=== PATIENT | male | born 1955 | race Caucasian/White ===

== ENCOUNTER → 2016-08-09 | Day surgery (SDC) | payer OTHER ==
[2016-08-08 13:28] VITALS: BMI 21.0
[~2016-08-09] VITALS: Ht 177.8 cm; Wt 66.8 kg
[~2016-08-09] MED LIST: ACET-1256 PO; ALBUAER19 INH; BUPR1SUB23 SL; FERR1TAB13 PO; LIDOCAINE HCL 2% 2 ML VIAL (20MG/ML) ONE; MESA10002 PR; MIDAZOLAM HCL 1 MG/ML 2ML VIAL ONE; MULT-506 PO; OXGN; PROPOFOL IV EMULSION 10 MG/ML 20 ML VIAL IV ONE; SERT50TA PO
[2016-08-09 13:33] VITALS: Ht 177.8 cm; Wt 66.8 kg
--- NOTE | 2016-08-09 13:56 | Endo History and Physical ---
History & Physical Date of Service: Aug 09, 2016. Chief Complaint: ULCERATIVE COLITIS Referring Physician: DR. MARS SALINAS History of Present Illness ulcerative colitis Past Medical History COPD Past Surgical History Hx Cardiac Surgery: No Hx Internal Defibrillator: No Hx Pacemaker: No Hx Abdominal Surgery: No Hx of Implantable Prosthesis: No Hx Post-Op Nausea and Vomiting: No Hx Cancer Surgery: No Hx Thoracic Surgery: No Hx Orthopedic: Yes (LT CTR, LT TKA, LUMBAR DISC X2, RT TKA) Hx Urinary Tract Surgery: No Family History None Social History Smoking Status: Former Smoker Hx Substance Use: Yes (QUIT 2006) Hx Alcohol Use: Yes (QUIT 1990) Allergies Coded Allergies: No Known Allergies (Verified , 08/08/16) Current Medications Reported Home Medications Medications Dose Route/Sig Max Daily Dose Days Date Category Suboxone 8-2 Mg (Buprenorphine Hcl-Naloxone Hcl) 1 Sub Sub 1 Dose SL BID 08/08/16 Reported Kp Ferrous Sulfate (Ferrous Sulfate) 325 Mg Tab 1 Tab PO QAM 08/08/16 Reported Tylenol (Acetaminophen) 500 Mg Tab 1,000 Mg PO QAM PRN 08/08/16 Reported Canasa (Mesalamine) 1,000 Mg Sup 1 Supp IN HS 02/18/16 Reported Multivitamin (Multivitamins) Tab 1 Tab PO QAM 02/18/16 Reported Ventolin Inhaler (Albuterol) Aers 2 Puffs INH QID PRN 02/18/16 Reported Oxygen Gas 2 Liters NA HS 02/18/16 Reported Zoloft (Sertraline HCl) 50 Mg Tab 50 Mg PO QAM 07/12/15 Reported Vital Signs Weight (Kilograms): 66.82 Height (Feet): 5 Height (Inches): 10 Date Time Temp Pulse Resp B/P Pulse Ox O2 Delivery O2 Flow Rate FiO2 08/09/16 13:46 36.6 82 16 129/65 99 Room Air Physical Exam General Appearance: no apparent distress Respiratory/Chest: Auscultation: breath sounds normal Cardiovascular: Heart Auscultation: RRR Abdomen: Inspection & Palpation: soft Assessment and Plan Ulcerative colitis - cscopy
--- NOTE | 2016-08-09 14:31 | Discharge Instructions ---
Endoscopy Patient Instructions Date / Procedure(s) Performed Aug 09, 2016. Colonoscopy Allergy Information Coded Allergies: No Known Allergies (Verified , 08/08/16) Discharge Date / Findings Aug 09, 2016. Severe proximal colitis Provider Instructions Activity Restrictions - No exercising or heavy lifting for 24 hours. - Do not drink alcohol the day of the procedure. - Do not drive a car or operate machinery until the day after the procedure. - Do not make any important decisions or sign important papers in 24 hours after the procedure. Following Day: - Return to full activity which may include returning to work/school. Diet Start your diet with liquids and light foods (jello, soup, juice, toast). Then eat your usual diet if not nauseated. Treatment For Common After Affects For mild abdominal pain, bloating, or excessive gas: - Rest - Eat lightly - Lie on right side Follow-Up Information Follow-up with DR. MARS SALINAS as scheduled Anesthesia Information What You Should Know You have had a procedure that required some medicine to reduce anxiety and discomfort. This treatment is called moderate sedation. After receiving the treatment, you may be sleepy, but you will be able to breathe on your own. The effects of the treatment may last for several hours. Follow these instructions along with Activity/Diet recommendations noted above: * Do NOT do anything where dizziness or clumsiness would be dangerous. * Rest quietly at home today, then you can be up and about tomorrow. * Have a responsible person stay with you the rest of today. * You may have had an I.V. today. If so, you may take the dressing off later today. Recommendations Call your doctor if: * Trouble breathing * Continuous vomiting for more than 24 hours * Temperature above 101 degrees * Severe abdominal pain or bloating * Pain not relieved by pain medicine ordered * There is increased drainage or redness from any incision * A large amount of rectal bleeding greater than 2-3 tablespoons. (If you had a polyp/s removed or have hemorrhoids, a small amount of blood - from the rectum is to be expected.) * You have any unanswered questions or concerns. IN THE EVENT OF A SERIOUS EMERGENCY, GO TO THE NEAREST EMERGENCY ROOM Your discharge instructions were prepared by provider Mimi Ryan. Patient Instructions Signature Page Jesse Manuel Patient (or Guardian) Signature/Date: I have read and understand the instructions given to me by my caregivers. Caregiver/RN/Doctor Signature/Date: The above-named patient and/or guardian has received patient instructions on this date. + Original Patient Signature Page (only) stays with chart. Please make copy for patient.
[2016-08-09 14:53] VITALS: BP 117/58; PULSE 78; O2SAT 97
--- NOTE | 2016-08-09 15:12 | Anesthesiology Progress Note ---
Anesthesia Post Op Note Date & Time Aug 09, 2016 at 15:12 Vital Signs Pain Intensity: 0 Vital Signs Past 12 Hours Date Time Temp Pulse Resp B/P Pulse Ox O2 Delivery O2 Flow Rate FiO2 08/09/16 14:53 78 16 117/58 97 Room Air 08/09/16 14:38 89 16 109/58 98 Room Air 08/09/16 14:23 88 16 118/60 97 Room Air 08/09/16 13:46 36.6 82 16 129/65 99 Room Air Notes Mental Status: alert / awake / arousable, participated in evaluation Pt Amnestic to Procedure: Yes Nausea / Vomiting: adequately controlled Pain: adequately controlled Airway Patency, RR, SpO2: stable & adequate BP & HR: stable & adequate Hydration State: stable & adequate Anesthetic Complications: no major complications apparent
--- NOTE | 2016-08-10 00:44 | GI REPORT ---
Procedure Date: 08/09/2016 2:00 PM Procedure: Colonoscopy Indications: Follow-up of ulcerative colitis Medicines: See the Anesthesia note for documentation of the administered medications Complications: No immediate complications. Estimated Blood Loss: Estimated blood loss: none. Procedure: Pre-Anesthesia Assessment: - ASA Grade Assessment: III - A patient with severe systemic disease. After I obtained informed consent, the scope was passed under direct vision. Throughout the procedure, the patient's blood pressure, pulse, and oxygen saturations were monitored continuously. The scope was introduced through the anus and advanced to the terminal ileum. The colonoscopy was performed without difficulty. The patient tolerated the procedure well. The quality of the bowel preparation was good. Findings: The perianal and digital rectal examinations were normal. There was mild patchy erytema in the rectum. Proximal to the rectosigmoid colon, there was evidence of severe colitis extending from the hepatic flexure to the rectosigmoid junction. There was marked granularity, edema, erythema of the entire transverse, descending, and sigmoid colon. There were patchy areas of rake ulceration, and the mucosa was diffusely covered with exudate. There was sparing of the ascending colon; the ascending colon was largely normal. The ileum was normal. Random biopsies done from throughou the colon. Impression: Rectal sparing severe colitis. Sparing of rectum is likely related to canasa use. Recommendation: Discharge pt home. Plan for prednisone taper. Oral mesalamine. Mimi Krause M.D. Mimi Krause MD 08/09/2016 2:24:51 PM This report has been signed electronically. Note Initiated On: 08/09/2016 2:00 PM I attest to the content of the Intraoperative Record and orders documented therein, exceptions below
[2016-08-11 18:03] LABS: O&P GIARDIA AG NOT DETECTED (NOT DETECTED)
== END | disposition home or self-care (01) ==
LOC: C.GI 13:19
PROVIDERS: ATTEND Internal Medicine Gastroenterology
DX: K51.90 Ulcerative colitis, unspecified, without complications (principal); Z87.891 Personal history of nicotine dependence; J44.9 Chronic obstructive pulmonary disease, unspecified

== ENCOUNTER → 2016-09-18 | Outpatient (CLI) | payer OTHER ==
[~2016-09-18] MED LIST changes: -LIDOCAINE HCL 2% 2 ML VIAL (20MG/ML) ONE; -MIDAZOLAM HCL 1 MG/ML 2ML VIAL ONE; -PROPOFOL IV EMULSION 10 MG/ML 20 ML VIAL IV ONE
--- NOTE | 2016-09-18 12:19 | DIAGNOSTIC IMAGING REPORT ---
CT SCAN OF THE CHEST WITHOUT IV CONTRAST CLINICAL HISTORY: Pulmonary nodule follow-up. COMPARISON STUDY: Chest CT scans dated 01/27/2016 and 09/06/2015. Abdominal CT dated 08/15/2007. TECHNIQUE: CT scan of the thorax was performed from the thoracic inlet to the upper abdomen. Images are reviewed in the axial, sagittal, and coronal planes. IV contrast was not administered for this examination. CT DOSE: 350.66 mGycm FINDINGS: Thyroid: Imaged portions of the thyroid gland are normal in size and attenuation. Thoracic aorta: There is mild atherosclerotic calcification of the thoracic aorta, which is normal in caliber and demonstrates standard 3-vessel arch anatomy. Heart: The heart is normal in size and without pericardial effusion. The coronary arteries and aortic valve leaflets are densely calcified. Lungs and pleural spaces: There is advanced emphysema. There is no airspace consolidation or pleural effusion. The trachea and central airways are clear. A tiny calcified granuloma is seen in the right lower lobe. There are left lower lobe nodules seen on image #251 and #272. These measure up to 6 mm and are unchanged dating back to the [address] These nodules are of doubtful significance. A left upper lobe nodule on image #92 measures 4 mm, and right upper lobe nodules seen on images #65, #91, and #149 measure up to 5 mm. These have been present dating back to 09/06/2015. No new pulmonary nodules are identified. Mediastinum: There is no mediastinal lymphadenopathy. Ledy: Not well assessed without IV contrast. Axillae: There is no axillary lymphadenopathy. Upper abdomen: Bilateral nonobstructing renal calculi measuring up to 4 mm. Partially imaged upper abdominal viscera is otherwise grossly normal. Skeletal structures: The skeletal structures appear osteopenic. Mild degenerative changes noted throughout the thoracic spine. There are mild compression deformities of T12 and L1. No lytic or blastic bony lesions are seen. Calcific tendinopathy is noted in the left shoulder. IMPRESSION: 1. Advanced emphysema. 2. No airspace consolidation or pleural effusion is seen. 3. There are 2 left lower lobe pulmonary nodules measure up to 6 mm. These are unchanged dating back to a [address] and are of doubtful significance. 4. Upper lobe nodules measure up to 5 mm and have not significantly changed dating back to 09/06/2015. These are pathologically indeterminant but of low significance. Continued follow-up is recommended to document 2 years of stability. 5. No new pulmonary nodules are identified. 6. Bilateral nonobstructing renal calculi. Please refer to below summary of Fleischner criteria recommendations for follow-up of incidental CT nodules (Gely Hernandez, Guidelines for management of small pulmonary nodules detected on CT scans: A statement from the Fleischner Society, Radiology 237: [phone].) SOLID NODULES Solitary nodule size: <6 mm * low risk patients: no follow-up needed * high risk patients: optional CT at 12 months Solitary nodule size: 6-8 mm * low risk patients: follow-up at 6-12 months, then consider further follow-up at 18-24 months * high risk patients: initial follow-up CT at 6-12 months and then at 18-24 months if no change Solitary nodule size: >8 mm * either low or high risk patients - consider follow-up CT at 3 months, and/or CT-PET, and/or biopsy Multiple nodules size: <6 mm * low risk patients: no routine follow-up * high risk patients: optional CT at 12 months Multiple nodules size: 6-8 mm * low risk patients: follow-up at 3-6 months, then consider further follow-up at 18-24 months * high risk patients: follow-up at 3-6 months, then at 18-24 months if no change Multiple nodules size: >8 mm * low risk patients: follow-up at 3-6 months, then consider further follow-up at 18-24 months * high risk patients: follow-up at 3-6 months, then at 18-24 months if no change Note: newly detected indeterminate nodule in persons 35 years of age or older. * low risk patients: minimal or absent history of smoking and/or other known risk factors * high risk patients: history of smoking or of other known risk factors (e.g. first degree relative with lung cancer, or exposure to asbestos, radon, uranium) * if a nodule up to 8 mm is partly solid or is ground glass further follow-up is required after 24 months to exclude possible slow growing adenocarcinoma (AMOS) SUBSOLID NODULES Solitary pure ground-glass nodule * nodule size <6 mm - no CT follow-up required * nodule size >=6 mm - follow-up CT at 6-12 months, then every 2 years until 5 years Solitary part-solid nodule * nodule size <6 mm - no CT follow-up required * nodule size >=6 mm - follow-up CT at 3-6 months. If unchanged, and solid component remains <6 mm, then annual follow-up for 5 years Multiple subsolid nodules * nodule size <6 mm - follow-up CT at 3-6 months, consider further follow-up at 2 and 4 years if stable * nodule size >=6 mm - follow-up CT at 3-6 months, subsequent management based on the most suspicious nodule(s) Electronically signed by: Angel Dye M.D. 09/18/2016 12:17 PM Dictated Date/Time: 09/18/2016 12:08 PM
== END | disposition home or self-care (01) ==
LOC: C.CTS 11:25
PROVIDERS: ATTEND Internal Medicine Critical Care Medicine
DX: R91.8 Other nonspecific abnormal finding of lung field (principal); J43.9 Emphysema, unspecified; N20.0 Calculus of kidney

== ENCOUNTER → 2016-10-10 | Outpatient (CLI) | payer OTHER ==
--- NOTE | 2016-10-10 17:11 | DIAGNOSTIC IMAGING REPORT ---
ULTRASOUND VENOUS DOPPLER ULTRASOUND THE LEFT LOWER EXTREMITY CLINICAL HISTORY: Left leg swelling. COMPARISON STUDY: 09/06/2015 FINDINGS: Real-time and color flow Doppler imaging were performed. Flow was seen within the femoral, popliteal and calf veins with no intraluminal thrombus demonstrated. The saphenous vein is patent. IMPRESSION: No evidence of left lower extremity DVT Electronically signed by: Deven Lane M.D. 10/10/2016 5:09 PM Dictated Date/Time: 10/10/2016 5:08 PM
== END | disposition home or self-care (01) ==
LOC: C.ULTR 16:42
PROVIDERS: ATTEND Orthopaedic Surgery Sports Medicine
DX: M79.89 Other specified soft tissue disorders (principal)

== ENCOUNTER → 2017-02-27 | Outpatient (CLI) | payer OTHER ==
[2017-02-27 16:39] LABS: BASO % 0.4 %; BASO ABS # 0.02 K/uL (0-0.2); COMPLETE YES; EOS % 3.3 %; HEMATOCRIT 34.5 % (42-52); IG% 0.2 %; LYMPH % 32.9 %; LYMPH ABS # 1.81 K/uL (1.2-3.4); MEAN CELL VOLUME 95.3 fL (80-100); MEAN CORPUSCULAR HEMOGLOBIN 31.5 pg (25-34); MEAN PLATELET VOLUME 9.6 fL (7.4-10.4); MONO % 8.9 %; NEUT % 54.3 %; PLATELET COUNT 381 K/uL (130-400); RED BLOOD COUNT 3.62 M/uL (4.7-6.1)
[2017-02-27 17:40] LABS: ALT/SGPT 33 U/L (12-78); AST/SGOT 22 U/L (15-37); BLOOD UREA NITROGEN 13 mg/dl (7-18); BUN/CREATININE RATIO 17.3 (10-20); CALCIUM 9.1 mg/dl (8.5-10.1); CARBON DIOXIDE 23 mmol/L (21-32); CHLORIDE 109 mmol/L (98-107); CREATININE 0.78 mg/dl (0.60-1.40); GLUCOSE 72 mg/dl (70-99); POTASSIUM 3.9 mmol/L (3.5-5.1); SODIUM 140 mmol/L (136-145)
[2017-02-27 17:42] LABS: ALKALINE PHOSPHATASE 69 U/L (45-117)
[2017-03-03 12:21] LABS: HEPATITIS C VIRAL RNA BY PCR <15 NOT DETECTED IU/ML (<15); HEPATITIS C VIRAL RNA(LOG) PCR <1.18 NOT DETECTED LOG IU/ML (<1.18)
== END | disposition home or self-care (01) ==
LOC: C.LAB 15:25
PROVIDERS: ATTEND Internal Medicine Gastroenterology
DX: B18.2 Chronic viral hepatitis C (principal)

== ENCOUNTER → 2017-04-23 | Outpatient (CLI) | payer OTHER ==
[2017-04-23 16:50] LABS: BASO % 0.6 %; BASO ABS # 0.04 K/uL (0-0.2); COMPLETE YES; EOS % 3.3 %; HEMATOCRIT 33.9 % (42-52); IG% 0.2 %; LYMPH % 36.8 %; LYMPH ABS # 2.43 K/uL (1.2-3.4); MEAN CELL VOLUME 95.8 fL (80-100); MEAN CORPUSCULAR HEMOGLOBIN 31.6 pg (25-34); MEAN PLATELET VOLUME 9.6 fL (7.4-10.4); NEUT % 52.1 %; PLATELET COUNT 324 K/uL (130-400); RED BLOOD COUNT 3.54 M/uL (4.7-6.1)
[2017-04-23 17:44] LABS: ALT/SGPT 36 U/L (12-78); BLOOD UREA NITROGEN 14 mg/dl (7-18); BUN/CREATININE RATIO 15.7 (10-20); CALCIUM 9.2 mg/dl (8.5-10.1); CARBON DIOXIDE 25 mmol/L (21-32); CHLORIDE 103 mmol/L (98-107); CREATININE 0.88 mg/dl (0.60-1.40); GLUCOSE 103 mg/dl (70-99); POTASSIUM 3.4 mmol/L (3.5-5.1); SODIUM 138 mmol/L (136-145)
[2017-04-23 17:47] LABS: ALKALINE PHOSPHATASE 70 U/L (45-117); AST/SGOT 28 U/L (15-37)
[2017-04-27 08:55] LABS: HEPATITIS C VIRAL RNA BY PCR <15 NOT DETECTED IU/ML (<15); HEPATITIS C VIRAL RNA(LOG) PCR <1.18 NOT DETECTED LOG IU/ML (<1.18)
== END | disposition home or self-care (01) ==
LOC: C.LAB 15:34
PROVIDERS: ATTEND Internal Medicine Gastroenterology
DX: B18.2 Chronic viral hepatitis C (principal)

== ENCOUNTER → 2017-07-26 | Outpatient (CLI) | payer OTHER ==
[2017-07-26 16:43] LABS: BASO % 0.5 %; BASO ABS # 0.03 K/uL (0-0.2); EOS % 4.1 %; EOS ABS # 0.25 K/uL (0-0.5); HEMATOCRIT 33.7 % (42-52); HEMOGLOBIN 11.3 g/dL (14.0-18.0); IG# 0.01 K/uL (0.00-0.02); LYMPH % 30.8 %; LYMPH ABS # 1.88 K/uL (1.2-3.4); MEAN CELL VOLUME 95.2 fL (80-100); MEAN CORPUSCULAR HEMOGLOBIN 31.9 pg (25-34); MEAN CORPUSCULAR HGB CONC 33.5 g/dl (32-36); MEAN PLATELET VOLUME 9.4 fL (7.4-10.4); MONO % 7.5 %; MONO ABS # 0.46 K/uL (0.11-0.59); NEUT % 56.9 %; NEUT ABS # 3.48 K/uL (1.4-6.5); PLATELET COUNT 324 K/uL (130-400); RED CELL DISTRIBUTION WIDTH CV 12.7 % (11.5-14.5); WHITE BLOOD COUNT 6.11 K/uL (4.8-10.8)
[2017-07-26 17:07] LABS: ALBUMIN 3.9 gm/dl (3.4-5.0); ALT/SGPT 39 U/L (12-78); AST/SGOT 29 U/L (15-37); BLOOD UREA NITROGEN 16 mg/dl (7-18); CALCIUM 8.9 mg/dl (8.5-10.1); CARBON DIOXIDE 26 mmol/L (21-32); CREATININE 0.88 mg/dl (0.60-1.40); GLUCOSE 83 mg/dl (70-99); POTASSIUM 3.9 mmol/L (3.5-5.1); SODIUM 136 mmol/L (136-145)
[2017-07-26 17:09] LABS: ALKALINE PHOSPHATASE 68 U/L (45-117); TOTAL PROTEIN 8.3 gm/dl (6.4-8.2)
[2017-07-31 08:47] LABS: HEPATITIS C VIRAL RNA BY PCR <15 NOT DETECTED IU/ML (<15); HEPATITIS C VIRAL RNA(LOG) PCR <1.18 NOT DETECTED LOG IU/ML (<1.18)
== END | disposition home or self-care (01) ==
LOC: C.LAB 15:17
PROVIDERS: ATTEND Internal Medicine Gastroenterology
DX: B18.2 Chronic viral hepatitis C (principal)

== ENCOUNTER 2025-02-07 14:03 | Inpatient (IN) ==
--- NOTE | 2025-02-07 14:18 | Emergency Department Note ---
Impression & Plan Acute dyspnea, Acute hypokalemia, Hypomagnesemia, Leukocytosis, Elevated lactic acid level, Elevated procalcitonin, Severe sepsis ED Provider Note HISTORY OF PRESENT ILLNESS: Patient is a 69-year-old male presenting with shortness of breath. Patient reports that shortly after waking up this morning he became significantly short of breath and felt like he could not catch his breath. He wears supplemental oxygen at night only. He started to develop some left-sided and substernal chest pain, and decided to call 911. On EMS arrival, the patient reportedly had saturations in the upper 80s on room air. They gave him a DuoNeb treatment and placed him on 4 L nasal cannula with improvement in his saturations to the upper 90s. Patient denies any DVT or PE history. Denies any history of cardiac stents. Denies any significant cough. He describes the left-sided and substernal chest pain as a pressure-like sensation. Denies recent fevers or chills. Denies any abdominal pain, nausea or vomiting. He denies any recent sick contact exposures. ROS: as above PHYSICAL EXAM: Constitutional: Patient appears in no acute distress. HENT: Head: Normocephalic and atraumatic. Eyes: EOMI, PERRL Mouth/Throat: Mucous membranes moist. Neck: Trachea midline. Neck supple. Cardiovascular: Tachycardic with regular rhythm. No murmurs, rubs or gallops. Intact distal pulses. Pulmonary/Chest: No respiratory distress. Breath sounds clear and equal bilaterally. No wheezes or rales. Abdominal: Abdomen soft, no tenderness, rebound or guarding. Musculoskeletal: No edema, tenderness or deformity noted. Skin: Warm and dry. Patient noted to have scabbed over wound on the left lateral upper leg. No obvious drainage from this area. No palpable crepitus. Psychiatric: Appropriate mood and affect for situation. Neurological: Alert and keenly responsive. CN II-XII grossly intact, moving all extremities equally and fully. MDM: - Vitals signs showed fever and tachycardia. - History obtained via patient. History as above. - Chronic conditions affecting care: COPD; anemia - Differential diagnoses include, but are not limited to: Congestive heart failure; acute coronary syndrome; COPD/asthma exacerbation; pulmonary edema; pulmonary embolism; pneumonia; pneumothorax; viral syndrome - Order placed for continuous cardiac monitoring. At this time, monitor showed rate of 125 bpm with normal sinus rhythm, per my interpretation. - External medical records reviewed. Pulmonary visit note dated 02/2025 was reviewed. Patient follows in our clinic for COPD. He wears 2 L nasal cannula at nighttime while sleeping. - EKG image interpreted by myself showed normal sinus rhythm. Rate tachycardic at 128 bpm. QT 306. No acute ischemic changes. - Laboratory workup interpreted by myself showed leukocytosis (WBC 19.82) with neutrophil predominance; anemia (Hgb 10.1); hyponatremia (Na 134); hypokalemia (K 2.8); elevated lactate (3.4); hypomagnesemia (Mg 1.5); normal troponin; normal BNP; elevated procalcitonin (6.11) - CXR image reviewed and interpreted by myself is negative for pneumonia, per my interpretation. - UA negative for infection - Blood cultures obtained - VBG negative - Patient given 2.5L NS in ER. Patient's sepsis fluid volume calculation based on actual body weight is 2259.00 mL. - Empirically covered for sepsis with vancomycin and cefepime - Patient given a total of 40 mEq IV potassium in 10 mEq IV runs. Given 1g IV magnesium for electrolyte replacement. - Given 1g IV tylenol for fever in ER. - Given patient's fever, tachycardia, tachypnea and leukocytosis as well as his elevated lactic acid level, he meets severe sepsis criteria. - Discussion was had with block and case maker about patient's case and need for admission - Hospitalist, Dr. Toney, consulted for admission at 16:07 - [facility]. I have personally spent 63 minutes of critical care time in the direct management of this patient. This includes bedside care, interpretation of diagnostic studies, and testing, discussion with consultants, patient, and family members, and other required patient management activities. This 63 minutes is in excess of all separately billable procedures. ASSESSMENT AND PLAN: Diagnosis: severe sepsis; acute dyspnea; acute hypokalemia; hypomagnesemia; leukocytosis; elevated lactic acid level; elevated procalcitonin Plan: Admit Past Med/Surg History Problem List (Updated 02/07/25 @ 15:12 by Daksha Irving MD) Severe sepsis (Acute) Elevated procalcitonin (Acute) Elevated lactic acid level (Acute) Leukocytosis (Acute) Hypomagnesemia (Acute) Acute hypokalemia (Acute) Acute dyspnea (Acute) Chronic venous insufficiency Venous ulcer of right leg (Acute) History of tobacco abuse Aortic stenosis Cardiac murmur Engages in vaping Nocturnal hypoxemia due to obstructive chronic bronchitis Chronic obstructive pulmonary disease Knee joint replacement status (Chronic) Left knee DJD Hepatitis C carrier (Chronic) 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) Medical History (Updated 02/07/25 @ 15:12 by Daksha Irving MD) IBD (inflammatory bowel disease) Anemia COPD (chronic obstructive pulmonary disease) Surgical History History of heart valve replacement H/O knee surgery History of back surgery Social History (Updated 12/10/23 @ 16:04 by Renetta Landaverde LPN) Smoking Status: Current every day smoker Tobacco Type: E-cigarettes / Vaping Age Started Using Tobacco: 11; packs per day: 2; Cigarettes Per Day: 2 packs; Second Hand Exposure: No; Do You Dip or Chew Tobacco: No; Hx Alcohol Use: No Hx Substance Use: No Preferred Language: Ugandan Current Living Situation: Spouse current occupation: Retired Feels Safe at Home: Yes Allergies Allergies Allergy/AdvReac Type Severity Reaction Status Date / Time No Known Allergies Allergy Unknown Verified 02/07/25 15:26 Home Meds Home Medications Medication Instructions Recorded Confirmed buprenorphine 8 mg-naloxone 2 mg 1.5 ea sublingual DAILY 04/02/19 02/07/25 sublingual film (Suboxone) mesalamine 1.2 gram tablet,delayed 2.4 gm PO DAILY 04/02/19 02/07/25 release acetaminophen 500 mg tablet 1,000 mg PO .DAILY WITH LUNCH PRN 08/03/21 02/07/25 (Tylenol Extra Strength) Pain ferrous sulfate 325 mg (65 mg 325 mg PO 3XWK 08/03/21 02/07/25 iron) tablet gabapentin 300 mg capsule 300 mg PO BIDWMEAL 08/03/21 02/07/25 sertraline 100 mg tablet 200 mg PO DAILY 08/03/21 02/07/25 aspirin 81 mg tablet,delayed 81 mg PO DAILY 12/10/23 02/07/25 release chlorthalidone 25 mg tablet 25 mg PO Q OTHER DAY 04/24/24 02/07/25 cholecalciferol (vitamin D3) 125 125 mcg PO DAILY 02/07/25 02/07/25 mcg (5,000 unit) tablet (Vitamin D3) coenzyme Q10 100 mg capsule (Co 100 mg PO DAILY 02/07/25 02/07/25 Q-10) gabapentin 300 mg capsule 900 mg PO HS 02/07/25 02/07/25 mesalamine 1,000 mg rectal 1,000 mg NH Q OTHER DAY 02/07/25 02/07/25 suppository omeprazole 20 mg capsule,delayed 20 mg PO DAILY 02/07/25 02/07/25 release prednisone 10 mg tablet 70 mg PO DAILY 02/07/25 02/07/25 rosuvastatin 20 mg tablet 20 mg PO QPM 02/07/25 02/07/25 Previous Rx's Medication Instructions Recorded Oxygen Home #1 ea 12/14/21 albuterol sulfate 90 mcg/actuation 2 inh inhalation QID PRN shortness 12/07/22 aerosol inhaler of breath or wheezing #8.5 grams Results & Data (ED) Vital Signs Vital Signs - 24 hr 02/07/25 14:04 02/07/25 14:33 02/07/25 14:42 Temperature 38.8 C H Temperature Source Oral Pulse Rate 127 H 132 H 135 H Pulse Rate [Right Finger] Pulse Rate from SpO2 Sensor 131 H Respiratory Rate 22 23 Respiratory Effort / Characteristics Respiratory Depth Respiratory Pattern Blood Pressure 126/76 117/75 Blood Pressure [Right Arm] Blood Pressure Mean 92 89 Blood Pressure Mean [Right Arm] Blood Pressure Position Semi-fowlers Pulse Oximetry 91 91 Oxygen Delivery Method Room Air Oxygen Flow Rate Sepsis Recent Fever Within 48 Hours Yes Sepsis New/Unexplained Change in Mental Status Yes Sepsis Action Taken by Nursing Physician Notified Oxygen Flow Rate - Titration Pulse Oximetry Post Tiitration 02/07/25 14:56 02/07/25 15:34 02/07/25 15:38 Temperature Temperature Source Pulse Rate Pulse Rate [Right Finger] 116 H Pulse Rate from SpO2 Sensor Respiratory Rate 24 Respiratory Effort / Characteristics Non-Labored Spontaneous Respiratory Depth Normal Respiratory Pattern Regular Blood Pressure Blood Pressure [Right Arm] 110/66 Blood Pressure Mean Blood Pressure Mean [Right Arm] 80 Blood Pressure Position Pulse Oximetry 87 L Oxygen Delivery Method Room Air Room Air Nasal Cannula Oxygen Flow Rate 87 Sepsis Recent Fever Within 48 Hours Sepsis New/Unexplained Change in Mental Status Sepsis Action Taken by Nursing Oxygen Flow Rate - Titration 2 Pulse Oximetry Post Tiitration 92 02/07/25 15:57 Temperature Temperature Source Pulse Rate Pulse Rate [Right Finger] 116 H Pulse Rate from SpO2 Sensor Respiratory Rate 22 Respiratory Effort / Characteristics Non-Labored Spontaneous Respiratory Depth Normal Respiratory Pattern Blood Pressure Blood Pressure [Right Arm] 99/57 L Blood Pressure Mean Blood Pressure Mean [Right Arm] 71 Blood Pressure Position Pulse Oximetry 90 Oxygen Delivery Method Nasal Cannula Oxygen Flow Rate 2 Sepsis Recent Fever Within 48 Hours Sepsis New/Unexplained Change in Mental Status Sepsis Action Taken by Nursing Oxygen Flow Rate - Titration Pulse Oximetry Post Tiitration Laboratory Data 02/07/25 14:18 02/07/25 14:18 Lab Results 02/07/25 02/07/25 Range/Units 14:18 14:31 WBC 19.82 H (4.8-10.8) K/ul RBC 3.36 L (4.70-6.10) M/uL Hgb 10.1 L (14.0-18.0) g/dl Hct 31.5 L (42.0-52.0) % MCV 93.8 (80.0-100.0) fL MCH 30.1 (25.0-34.0) pg MCHC 32.1 (32.0-36.0) g/dL RDW Std Deviation 62.2 H (36.4-46.3) fL RDW Coeff of Ra 19.7 H (11.5-14.5) % Plt Count 324 (130-400) K/uL MPV 9.9 (9.4-12.4) fL Immature Gran % (Auto) 0.6 % Neut % (Auto) 90.0 % Lymph % (Auto) 6.4 % [place] % (Auto) 2.7 % Eos % (Auto) 0.2 % Baso % (Auto) 0.1 % Neut # (Auto) 17.85 H (1.40-6.50) K/uL Lymph # (Auto) 1.27 (1.20-3.40) K/uL [place] # (Auto) 0.54 (0.11-0.59) K/uL Eos # (Auto) 0.03 (0.00-0.50) K/uL Baso # (Auto) 0.01 (0.00-0.20) K/uL Immature Gran # (Auto) 0.12 (0.01-0.20) K/uL Absolute Nucleated RBC 0.03 (0.00-0.12) K/uL Nucleated RBC % (auto) 0.2 % PT 10.3 (9.0-12.0) Seconds INR 0.9 (0.9-1.1) VBG pH 7.52 H (7.36-7.41) VBG pCO2 35 L (38-50) mmHg VBG pO2 30 mmHg VBG HCO3 29 mmol/L VBG O2 Saturation < 60.0 % VBG Base Excess 5.7 mEq/L Sodium 134 L (136-145) mmol/L Potassium 2.8 L (3.5-5.1) mmol/L Chloride 98 (98-107) mmol/L Carbon Dioxide 28 (21-32) mmol/L Anion Gap 8 (3-11) BUN 21 (6-23) mg/dl Creatinine 1.07 (0.6-1.4) mg/dl Est Cr Clr Drug Dosing Not Reportable eGFR 74.19 BUN/Creatinine Ratio 19.6 (10-20) Glucose 113 H (70-99(Fasting)) mg/dl Lactate 3.4 H* (0.4-2.0) mmol/L Calcium 9.4 (8.6-10.3) mg/dl Magnesium 1.5 L (1.7-2.4) mg/dl Total Bilirubin 0.5 (0.2-1.0) mg/dl AST 29 (13-39) U/L ALT 22 (7-52) U/L Alkaline Phosphatase 51 (34-104) U/L Troponin I High Sens 19.2 (0-20) pg/ml B-Natriuretic Peptide 71 (0-100) pg/ml Total Protein 7.8 (6.0-8.3) gm/dl Albumin 4.0 (3.4-5.0) gm/dl Globulin 3.8 (2.5-4.0) gm/dl Albumin/Globulin Ratio 1.1 (0.9-2) Procalcitonin 6.11 H (0-0.5) ng/ml Urine Color Yellow Urine Appearance Clear (Clear) Urine pH 7.5 (4.5-7.5) Ur Specific [place] 1.014 (1.000-1.030) Urine Protein Negative (Negative) Urine Glucose (UA) Negative (Negative) Urine Ketones Negative (Negative) Urine Blood Negative (Negative) Urine Nitrite Negative (Negative) Urine Bilirubin Negative (Negative) Urine Urobilinogen Negative (Negative) Ur Leukocyte Esterase Negative (Negative) Urine Comment Ethyl Alcohol mg/dL < 10.0 (<10.0) mg/dl Administered Medications Potassium Chloride (K Javed / Wtr) 10 meq in 100 mls @ 100 mls/hr IV Q1H CRISTINA Stop: 02/07/25 19:14 Last Admin: 02/07/25 15:53 Dose: 100 mls/hr Documented By: NRB Discontinued Medications Sodium Chloride (Nss) 1,000 mls @ 999 mls/hr IV .Q1H1M ONE Stop: 02/07/25 15:34 Last Admin: 02/07/25 15:21 Dose: 999 mls/hr Documented By: NRB Sodium Chloride (Nss) 1,000 mls @ 999 mls/hr IV .Q1H1M ONE Stop: 02/07/25 16:00 Last Admin: 02/07/25 15:30 Dose: 999 mls/hr Documented By: NRB Sodium Chloride (Nss) 500 mls @ 999 mls/hr IV .Q31M ONE Stop: 02/07/25 15:30 Last Admin: 02/07/25 15:54 Dose: 999 mls/hr Documented By: NRB Cefepime HCl (Maxipime 2000mg) 2,000 mg in 20 mls @ 5 mls/min IV NOW STA; Protocol Stop: 02/07/25 15:03 Last Admin: 02/07/25 15:24 Dose: 5 mls/min Documented By: NRB Acetaminophen (Ofirmev) 1,000 mg in 100 mls @ 400 mls/hr IV NOW STA Stop: 02/07/25 15:15 Last Admin: 02/07/25 15:23 Dose: 400 mls/hr Documented By: NRB Imaging Data Radiologist's Impression: Chest X-Ray 02/07/25 14:09 Chest radiograph, one view History: Dyspnea Comparison: None Findings: Single AP view of the chest performed. No focal consolidation or pleural effusion. No pneumothorax. The cardiomediastinal silhouette is within normal limits. Normal pulmonary vascularity. No evidence for lymphadenopathy. No visualized bony or soft tissue abnormality. Impression: Normal chest radiograph Electronically signed by Mike Elias 02-07-2025 3:02 PM Discharge Plan Visit Data Chief Complaint: Shortness of Breath/Dyspnea ED Provider: Daksha Irving Discharge Problem: Acute dyspnea, Acute hypokalemia, Hypomagnesemia, Leukocytosis, Elevated lactic acid level, Elevated procalcitonin, Severe sepsis Patient Disposition: Admitted As Inpatient Condition: Fair Forms Stand Alone Forms: My [facility] Prescriptions Prescriptions: No Action (DME) Oxygen Home Liters Per Minute See Dose Instructions .ROUTE .MEDSUPPLY Qty: 1 0RF Rx Instructions: 2LPM AT NIGHT VIA AR BRADEN-99 albuterol sulfate 90 mcg/actuation HFA aerosol inhaler 2 inh inhalation QID PRN (Reason: shortness of breath or wheezing) Qty: 8.5 3RF aspirin 81 mg tablet,delayed release (DR/EC) 81 mg PO DAILY mesalamine 1.2 gram tablet,delayed release (DR/EC) 2.4 gm PO DAILY buprenorphine-naloxone [Suboxone] 8-2 mg film 1.5 ea SL DAILY chlorthalidone 25 mg tablet 25 mg PO Q OTHER DAY Rx Instructions: Sunday, Sunday, and Sunday sertraline 100 mg tablet 200 mg PO DAILY gabapentin 300 mg capsule 300 mg PO BIDWMEAL Rx Instructions: Breakfast and lunch ferrous sulfate 325 mg (65 mg iron) Tablet 325 mg PO 3XWK Rx Instructions: ,,sat; on hold pt has been receiving IV infusion for Iron acetaminophen [Tylenol Extra Strength] 500 mg Tablet 1,000 mg PO .DAILY WITH LUNCH PRN (Reason: Pain) prednisone 10 mg tablet 70 mg PO DAILY Rx Instructions: adjusted weekly by lab results gabapentin 300 mg capsule 900 mg PO HS omeprazole 20 mg capsule,delayed release(DR/EC) 20 mg PO DAILY coenzyme Q10 [Co Q-10] 100 mg Capsule 100 mg PO DAILY rosuvastatin 20 mg tablet 20 mg PO QPM mesalamine 1,000 mg suppository 1,000 mg NH Q OTHER DAY cholecalciferol (vitamin D3) [Vitamin D3] 125 mcg (5,000 unit) Tablet 125 mcg PO DAILY Referrals Referrals: Garcia Elias DO [Primary Care Provider] -
[2025-02-07 14:29] LABS: Base Excess VBG 5.7 mEq/L; HCO3 VBG 29 mmol/L; Oxygen Saturation VBG < 60.0 %; PCO2 VBG 35 mmHg (38-50); PO2 VBG 30 mmHg; pH VBG 7.52 (7.36-7.41)
[2025-02-07 14:34] LABS: Hematocrit (blood only) 31.5 % (42.0-52.0); Hemoglobin 10.1 g/dl (14.0-18.0); Immature Granulocytes # (auto) 0.12 K/uL (0.01-0.20); Immature Granulocytes % (auto) 0.6 %; Mean Corpuscular Hemoglobin 30.1 pg (25.0-34.0); Mean Corpuscular Volume 93.8 fL (80.0-100.0); Platelet Count 324 K/uL (130-400); RDW Standard Deviation 62.2 fL (36.4-46.3); Red Blood Count 3.36 M/uL (4.70-6.10); White Blood Count 19.82 K/ul (4.8-10.8)
[2025-02-07 14:51] LABS: Appearance Urine Clear (Clear); Glucose Urine UA Negative (Negative)
[2025-02-07 14:53] LABS: Alanine Aminotransferase 22 U/L (7-52); Albumin Globulin Ratio 1.1 (0.9-2); Alkaline Phosphatase 51 U/L (34-104); Anion Gap 8 (3-11); Bilirubin,Total 0.5 mg/dl (0.2-1.0); Blood Urea Nitrogen 21 mg/dl (6-23); Calcium 9.4 mg/dl (8.6-10.3); Carbon Dioxide 28 mmol/L (21-32); Chloride 98 mmol/L (98-107); Globulin 3.8 gm/dl (2.5-4.0); Glucose 113 mg/dl (70-99(Fasting)); Magnesium 1.5 mg/dl (1.7-2.4); Potassium 2.8 mmol/L (3.5-5.1); Sodium 134 mmol/L (136-145); Total Protein 7.8 gm/dl (6.0-8.3)
[2025-02-07] MEDS ORDERED: VANCOMYCIN CONSULT ACTIVE PRN (15:00)
--- NOTE | 2025-02-07 15:02 | XRay Report ---
Chest radiograph, one view History: Dyspnea Comparison: None Findings: Single AP view of the chest performed. No focal consolidation or pleural effusion. No pneumothorax. The cardiomediastinal silhouette is within normal limits. Normal pulmonary vascularity. No evidence for lymphadenopathy. No visualized bony or soft tissue abnormality. Impression: Normal chest radiograph Electronically signed by Mike Elias 02-07-2025 3:02 PM
[2025-02-07] MEDS: SODIUM CHLORIDE 0.9% 1,000 ML IV ONE ×2 (15:21→15:30)
[2025-02-07] MEDS: ACETAMINOPHEN 1,000 MG/100 ML VIAL IV STA (15:23)
[2025-02-07] MEDS: CEFEPIME 2000MG 2,000 MG/20 ML SYR IV STA (15:24)
[2025-02-07 15:41] LABS: INR 0.9 (0.9-1.1); Prothrombin Time 10.3 Seconds (9.0-12.0)
[2025-02-07] MEDS: POTASSIUM CHLORIDE / WTR 10 MEQ/100 ML PLCT IV SCH (15:53)
[2025-02-07] MEDS: SODIUM CHLORIDE 0.9% 500 ML IV ONE (15:54)
[2025-02-07] MEDS: MAGNESIUM SULFATE / D5W 1 GM/100 ML BAG IV STA (16:06)
[2025-02-07 16:11] LABS: Chlamydia pneumoniae PCR Not Detected (NotDetected); Coronavirus 229E PCR Not Detected (NotDetected); Coronavirus CoV-2 (COVID19)PCR Not Detected (NotDetected); Coronavirus HKU1 PCR Not Detected (NotDetected); Coronavirus NL63 PCR Not Detected (NotDetected); Coronavirus OC43PCR Not Detected (NotDetected); Human Metapneumovirus PCR Not Detected (NotDetected); Parainfluenza Virus 1 PCR Not Detected (NotDetected); Parainfluenza Virus 2 PCR Not Detected (NotDetected); Parainfluenza Virus 3 PCR Not Detected (NotDetected); Parainfluenza Virus 4 PCR Not Detected (NotDetected); Respiratory Syncytial VirusPCR Not Detected (NotDetected); Rhinovirus/Enterovirus PCR Not Detected (NotDetected)
[2025-02-07] MEDS: VANCOMYCIN HCL 1,500 MG in SODIUM CHLORIDE 0.9% 500 ML IV ONE (16:15)
[2025-02-07] MEDS ORDERED: MAGNESIUM HYDROXIDE SUSP 30 ML UDC PO PRN (16:41)
[2025-02-07] MEDS ORDERED: ALUMINUM/MAGNESIUM SUSP 30 ML UDC PO PRN (16:41)
[2025-02-07] MEDS ORDERED: ALBUTEROL HFA 8 GM INHALER INH PRN (16:43)
[2025-02-07] MEDS: SODIUM CHLORIDE 0.9% 1,000 ML IV SCH (16:56)
--- NOTE | 2025-02-07 17:03 | History & Physical Report ---
Date of Service February 07, 2025 Assessment & Plan (1) Severe sepsis: Plan Possible pneumonia Severe sepsis: Secondary to above Patient presents with acute shortness of breath and febrile episode at home Patient has history of recurrent pneumonia. Patient denies cough, denies abdominal pain, denies pain or burning while passing urine, there is no streaking erythema from ulcers in the left thigh. Respiratory pathogen panel and urine analysis negative. Patient is started on vancomycin and cefepime in the ED, continue. Follow admitting blood culture. If blood culture negative and CT scan of the chest negative for infection, consider echo to rule out vegetations given history of TAVR. Continue with IV fluid, lactic acid trending down. Hypokalemia: Admitting potassium of 2.8, replete total of 120 mEq, repeat BMP in AM. Hypomagnesemia: Admitting magnesium of 1.5, replete 1 g, magnesium levels in AM. Other chronic medical conditions: Continue with/resume home meds as when able. Monoclonal paraprotein anemia/anemia: Patient on a steroid, follows Dr. Sutton as an outpatient, continue with PPI while on steroid. Follow-up with hematology upon discharge for ongoing steroid dose adjustment. Ulcerative colitis: Patient with no abdominal pain, continue home mesalamine p.o. and MN. Hypertension, hyperlipidemia, CAD--- continue home medication. History of TAVR: Consider echo if no source of infection found to rule out vegetation. DVT prophylaxis: Heparin subcu Full code History of Present Illness Chief Complaint: Shortness of breath, fever Primary Care Provider: Garcia Elias DO 69-year-old male with PMH of HLD, COPD, HTN, ulcerative pancolitis, chronic viral hepatitis C, iron deficiency anemia, monoclonal paraproteinemia, tobacco u se disorder, narcotic addiction, aortic stenosis status post TAVR, major depressive disorder presents to the ED with complaint of acute shortness of breath and fever. Patient's present at bedside, who states that patient was very short of breath today and temperature was 102.7 F, saturation was 91 to 92% on room air and heart rate was 130s before arrival at home. 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 Patient had history of 2 pneumonias in the past. They deny any sick contacts lately. Patient also has multiple superficial ulcers on his left thigh with surrounding redness, no red streaking redness or tenderness on exam, patient apparently is picking on the skin. Patient denies nausea/vomiting/diarrhea/belly pain/pain or burning while passing urine. Patient reports smoking vapes, denies current use of alcohol or recreational drugs. Medications reviewed with the patient and his at bedside. Plan of care discussed with patient and his at bedside in detail. They voiced understanding. Full code Allergies Allergy/AdvReac Type Severity Reaction Status Date / Time No Known Allergies Allergy Unknown Verified 02/07/25 15:26 Home Medications Medication Instructions Recorded Confirmed Type buprenorphine 8 mg-naloxone 2 mg 1.5 ea sublingual DAILY 04/02/19 02/07/25 History sublingual film (Suboxone) mesalamine 1.2 gram tablet,delayed 2.4 gm PO DAILY 04/02/19 02/07/25 History release acetaminophen 500 mg tablet 1,000 mg PO .DAILY WITH LUNCH PRN 08/03/21 02/07/25 History (Tylenol Extra Strength) Pain ferrous sulfate 325 mg (65 mg 325 mg PO 3XWK 08/03/21 02/07/25 History iron) tablet gabapentin 300 mg capsule 300 mg PO BIDWMEAL 08/03/21 02/07/25 History sertraline 100 mg tablet 200 mg PO DAILY 08/03/21 02/07/25 History Oxygen Home #1 ea 12/14/21 01/05/25 Rx albuterol sulfate 90 mcg/actuation 2 inh inhalation QID PRN shortness 12/07/22 02/07/25 Rx aerosol inhaler of breath or wheezing #8.5 grams aspirin 81 mg tablet,delayed 81 mg PO DAILY 12/10/23 02/07/25 History release chlorthalidone 25 mg tablet 25 mg PO Q OTHER DAY 04/24/24 02/07/25 History cholecalciferol (vitamin D3) 125 125 mcg PO DAILY 02/07/25 02/07/25 History mcg (5,000 unit) tablet (Vitamin D3) coenzyme Q10 100 mg capsule (Co 100 mg PO DAILY 02/07/25 02/07/25 History Q-10) gabapentin 300 mg capsule 900 mg PO HS 02/07/25 02/07/25 History mesalamine 1,000 mg rectal 1,000 mg MN Q OTHER DAY 02/07/25 02/07/25 History suppository omeprazole 20 mg capsule,delayed 20 mg PO DAILY 02/07/25 02/07/25 History release prednisone 10 mg tablet 70 mg PO DAILY 02/07/25 02/07/25 History rosuvastatin 20 mg tablet 20 mg PO QPM 02/07/25 02/07/25 History Past Med/Surg History Problem List (Updated 02/07/25 @ 15:12 by Daksha Irving MD) Severe sepsis (Acute) Elevated procalcitonin (Acute) Elevated lactic acid level (Acute) Leukocytosis (Acute) Hypomagnesemia (Acute) Acute hypokalemia (Acute) Acute dyspnea (Acute) Chronic venous insufficiency Venous ulcer of right leg (Acute) History of tobacco abuse Aortic stenosis Cardiac murmur Engages in vaping Nocturnal hypoxemia due to obstructive chronic bronchitis Chronic obstructive pulmonary disease Knee joint replacement status (Chronic) Left knee DJD Hepatitis C carrier (Chronic) 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) Medical History (Updated 02/07/25 @ 15:12 by Daksha Irving MD) IBD (inflammatory bowel disease) Anemia COPD (chronic obstructive pulmonary disease) Surgical History History of heart valve replacement H/O knee surgery History of back surgery Social History (Updated 12/10/23 @ 16:04 by Renetta Landaverde LPN) Smoking Status: Current every day smoker Tobacco Type: E-cigarettes / Vaping Age Started Using Tobacco: 11; packs per day: 2; Cigarettes Per Day: 2 packs; Second Hand Exposure: No; Do You Dip or Chew Tobacco: No; Hx Alcohol Use: No Hx Substance Use: No Preferred Language: Kazakh Current Living Situation: Spouse current occupation: Retired Feels Safe at Home: Yes Review of Systems Review of Systems: Negative otherwise mentioned in HPI. Physical Exam Physical Exam: GENERAL: Alert and oriented x3. NAD, on 2L NC O2. HEENT: No pallor, no icterus. Pupils equal, round and reactive to light. Oral mucosa dry. NECK: No JVD, no neck masses. HEART: S1 and S2 heard. Regular rate and rhythm. HR in 100s-110s. No murmur, no gallop. RESPIRATORY SYSTEM: Normal AP diameter. No accessory muscle use. No wheezing, no crackles. ABDOMEN: Soft, bowel sounds present, nontender, no distention. CENTRAL NERVOUS SYSTEM: No facial droop. Speech is clear. Obeys simple commands. Moves extremities. EXTREMITIES: No edema, no erythema seen. Left thigh superficial ulcers, scabbed, surrounding erythema, no drainage, no streaking, non tender. Results & Data Results & Data Vital Signs (Past 12 Hours) Vital Signs Temp Pulse Pulse Resp BP BP Pulse Ox 02/07/25 16:21 110 H 26 H 108/66 92 02/07/25 16:08 114 H 24 104/65 91 02/07/25 15:57 116 H 22 99/57 L 90 02/07/25 15:38 02/07/25 15:34 116 H 24 110/66 87 L 02/07/25 14:56 02/07/25 14:42 135 H 02/07/25 14:33 132 H 23 117/75 91 02/07/25 14:04 38.8 C H 127 H 22 126/76 91 O2 Del Method O2 Flow Rate 02/07/25 16:21 Nasal Cannula 2 02/07/25 16:08 Nasal Cannula 2 02/07/25 15:57 Nasal Cannula 2 02/07/25 15:38 Nasal Cannula 87 02/07/25 15:34 Room Air 02/07/25 14:56 Room Air 02/07/25 14:42 02/07/25 14:33 02/07/25 14:04 Room Air
[2025-02-07] MEDS: POTASSIUM CHLORIDE CRTAB 20 MEQ TABCR PO SCH (20:16)
[2025-02-07] MEDS: ROSUVASTATIN CALCIUM 20 MG TAB PO SCH (20:16)
[2025-02-07] MEDS: HEPARIN SOD 5,000 UNIT/0.5 ML VIAL SQ SCH (20:16)
[2025-02-07] MEDS: ACETAMINOPHEN 325 MG TAB PO PRN (20:16)
[2025-02-07] MEDS: CEFEPIME 2000MG 2,000 MG/20 ML SYR IV SCH (20:17)
[2025-02-07] MEDS: GABAPENTIN 300 MG CAP PO SCH (20:38)
[2025-02-07] MEDS: VANCOMYCIN HCL / NSS 1,000 MG/270 ML BAG IV SCH (22:03)
[2025-02-08 02:22] LABS: A calco-baum cmplx NotReported Not Detected (NotDetected); Bact fragilis Not Reported Not Detected (NotDetected); Blood Culture Id Panel See PCR Comment (NotDetected); C auris Not Reported Not Detected (NotDetected); Calbicans Not Reported Not Detected (NotDetected); Candida glabrata Not Reported Not Detected (NotDetected); Candida krusei Not Reported Not Detected (NotDetected); Cneoformans/gatti Not Reported Not Detected (NotDetected); Cparapsilosis Not Reported Not Detected (NotDetected); Ctropicalis Not Reported Not Detected (NotDetected); E cloacae compx Not Reported Not Detected (NotDetected); Efaecalis Not Reported Not Detected (NotDetected); Efaecium Not Reported Not Detected (NotDetected); Enterobacterales Not Reported Not Detected (NotDetected); Escherichia coli Not Reported Not Detected (NotDetected); H influenzae Not Reported Not Detected (NotDetected); K aerogenes Not Reported Not Detected (NotDetected); Koxytoca Not Reported Not Detected (NotDetected); Kpneumoniae grp Not Reported Not Detected (NotDetected); Lmonocyt Not Reported Not Detected (NotDetected); N meningitidis Not Reported Not Detected (NotDetected); P aeruginosa Not Reported Not Detected (NotDetected); Proteus spp Not Reported Not Detected (NotDetected); Salmonella spp Not Reported Not Detected (NotDetected); Staph lugdunensis Not Reported Not Detected (NotDetected); Staph spp. Not Reported DETECTED (NotDetected); Staphaureus Not Reported DETECTED (NotDetected); Staphepi Not Reported Not Detected (NotDetected); Staphylococcus spp. DETECTED (NotDetected); Stenmaltophilia Not Reported Not Detected (NotDetected); Strep agal(GrpB) Not Reported Not Detected (NotDetected); Strep pneum Not Reported Not Detected (NotDetected); Strep pyog (GrpA) Not Reported Not Detected (NotDetected); Strep spp Not Reported Not Detected (NotDetected); mecAC+MREJ Resistant Gene MRSA Not Detected (NotDetected)
--- NOTE | 2025-02-08 02:35 | Communication Note ---
Date of Service: February 08, 2025 Made aware of abnormal initial blood CS result Gram-positive cocci in clusters 2 bottles Staphylococcus species and Staphylococcus aureus on PCR MRSA not detected AP MSSA bacteremia Possible pneumonia as per admission H&P although chest x-ray negative IV ceftriaxone for now DC vancomycin and cefepime Await CT chest read TTE, ID consult re: MSSA bacteremia
[2025-02-08] MEDS: cefTRIAXone SODIUM 2,000 MG/50 ML BAG IV SCH (05:25)
[2025-02-08 06:41] LABS: Hematocrit (blood only) 26.9 % (42.0-52.0); Hemoglobin 9.0 g/dl (14.0-18.0); Mean Corpuscular Hemoglobin 31.3 pg (25.0-34.0); Mean Corpuscular Volume 93.4 fL (80.0-100.0); Platelet Count 239 K/uL (130-400); RDW Standard Deviation 64.8 fL (36.4-46.3); Red Blood Count 2.88 M/uL (4.70-6.10); White Blood Count 31.98 K/ul (4.8-10.8)
[2025-02-08 06:59] LABS: Anion Gap 8.0 (3-11); Blood Urea Nitrogen 23.0 mg/dl (6-23); Calcium 7.6 mg/dl (8.6-10.3); Carbon Dioxide 23.0 mmol/L (21-32); Chloride 104.0 mmol/L (98-107); Creatinine Clr Calc Pharmacy 66.9 ml/min; Glucose 94.0 mg/dl (70-99(Fasting)); Magnesium 1.8 mg/dl (1.7-2.4); Potassium 3.8 mmol/L (3.5-5.1); Sodium 135.0 mmol/L (136-145)
[2025-02-08] MEDS: ASPIRIN 81 MG ECTAB PO SCH (08:43)
[2025-02-08] MEDS: SERTRALINE HCL 100 MG TABLET PO SCH (08:43)
[2025-02-08] MEDS: ADVANCED PROBIOTIC 625 MG CAPSULE PO SCH (08:44)
[2025-02-08] MEDS: predniSONE 20 MG TAB PO SCH (08:44)
[2025-02-08] MEDS: MESALAMINE 800 MG TABCR PO SCH (08:44)
[2025-02-08] MEDS: BUPRENORPHINE/NALOXONE 8/2 MG TAB SL SCH (08:52)
[2025-02-08] MEDS: DAPTOmycin 600 MG in SYRINGE 0 ML IV SCH (08:55)
--- NOTE | 2025-02-08 10:41 | Electrocardiogram Report ---
Test Reason : Blood Pressure : */* mmHG Vent. Rate : 128 BPM Atrial Rate : 128 BPM P-R Int : 142 ms QRS Dur : 88 ms QT Int : 306 ms P-R-T Axes : 52 -63 79 degrees QTcB Int : 446 ms Sinus tachycardia with occasional Premature ventricular complexes Left anterior fascicular block Minimal voltage criteria for LVH, may be normal variant Septal infarct , age undetermined Abnormal ECG When compared with ECG of 03-Aug-2021 22:14, Significant changes have occurred Confirmed by Daron Gunn ([id number]) on 02/08/2025 10:41:26 AM Referred By: Confirmed By: Daron Gunn
--- NOTE | 2025-02-08 13:35 | CT Scan Report ---
CT OF THE CHEST WITHOUT IV CONTRAST CLINICAL HISTORY: Hypoxia. Evaluate for pneumonia. COMPARISON STUDY: Chest CT December 08, 2024. Chest radiograph performed earlier today. CT DOSE: 635.32 mGy.cm TECHNIQUE: Axial images of the chest were obtained without IV contrast. Images were reviewed in the axial, sagittal, and coronal planes. IV contrast was not administered for this examination. Automat ed exposure control was utilized for the study. A dose lowering technique was utilized adhering to t he principles of ALARA. FINDINGS: No enlarged axillary, mediastinal or hilar lymph nodes are present. Venous gas is incident ally noted. There is a prosthetic aortic valve. Size of the heart is normal. There is no pericardial effusion. There is a small hiatal hernia. No pneumothorax is present. There is a trace right pleural effusion. Moderate upper lobe predominant emphysema is noted. Scattered pulmonary nodules measuring u p to 6 mm are unchanged from earlier exams. Linear densities and groundglass opacities within the leonila ateral lower lobes have developed since CT of December 08, 2024. The appearance favors atelectasis. An inf ectious process could appear similar although is considered less likely. There is no consolidation. C entral airways are patent. Visualized portions of the upper abdomen demonstrate mild symmetric bilate ral perinephric stranding. IMPRESSION: 1. Bilateral lower lobe groundglass opacities and linear densities. The appearance favors atelectasis . An infectious process could appear similar but is considered less likely. No consolidation. 2. Moderate upper lobe predominant emphysema. 3. No change in multiple small pulmonary nodules measuring up to 6 mm. These can be assessed on follo w-up exams to ensure continued stability. 4. Trace right pleural effusion. 5. Mild bilateral perinephric stranding, a nonspecific finding. This could be correlated with urinaly sis. ACT 112: Negative or not required by law. Electronically signed by: Stephan French M.D. 02/08/2025 1:33 PM
--- NOTE | 2025-02-08 14:38 | Hospitalist Progress Note ---
Date of Service February 08, 2025 Assessment & Plan (1) Severe sepsis: Plan Bacteremia Left thigh wounds Possible pneumonia Severe sepsis: Secondary to above Patient presents with acute shortness of breath and febrile episode at home Patient has history of recurrent pneumonia. Patient denies cough, denies abdominal pain, denies pain or burning while passing urine, there is no streaking erythema from ulcers in the left thigh. Respiratory pathogen panel and urine analysis negative. Patient is started on vancomycin and cefepime in the ED, continue. Follow admitting blood culture. If blood culture negative and CT scan of the chest negative for infection, cons ider echo to rule out vegetations given history of TAVR. Continue with IV fluid, lactic acid trending down. 02/08 WBC increased to 30K Blood culture showing gram-positive cocci in clusters Repeat blood cultures ordered for tomorrow Echocardiogram CT chest showing possible bilateral lower lobe infiltrates continue daptomycin plus ceftriaxone ID consult Hypokalemia: Admitting potassium of 2.8, replete total of 120 mEq, repeat BMP in AM. resolved Hypomagnesemia: Admitting magnesium of 1.5, replete 1 g, magnesium levels in AM. resolved Other chronic medical conditions: Continue with/resume home meds as when able. Monoclonal paraprotein anemia/anemia: Patient on a steroid, follows Dr. Sutton as an outpatient, continue with PPI while on steroid. Follow-up with hematology upon discharge for ongoing steroid dose adjustment. Ulcerative colitis: Patient with no abdominal pain, continue home mesalamine p.o. and [place]. Hypertension, hyperlipidemia, CAD--- continue home medication. History of TAVR: Echo ordered DVT prophylaxis: Heparin subcu Full code Admission and Anticipated Discharge Date Admission Date: February 07, 2025 Subjective sitting up in bed, comfortable, on 2 L of O2 via nasal cannula States he feels better today compared to yesterday Breathing is better Denies cough, chest pain No abdominal pain No leg pain No other new symptoms Review of Systems Review of Systems: all noted and negative except for above Physical Exam Physical Exam: General- oriented x 3, not in distress, speaks in sentences with no effort or accessory muscle use Eyes- anicteric Neck- no JVD Lungs- mild rales at the bases Heart- normal rate, regular rhythm; no murmurs Abdomen- normal bowel sounds, nondistended, soft, no tenderness Extremities- no pretibial edema, no calf tenderness left thigh: Small scabbing wounds, multiple, anterior/lateral thigh regions No surrounding erythema or hematoma Neuro- alert, oriented x 3; no gross focal neurologic deficits Skin- warm & dry Results & Data Results & Data Vital Signs (Past 12 Hours) Vital Signs Temp Pulse Pulse Resp BP Pulse Ox O2 Del Method 02/08/25 13:52 64 02/08/25 13:52 Nasal Cannula 02/08/25 13:03 37 C 02/08/25 12:53 37 C 02/08/25 10:36 36.8 C 86 20 93/41 L 91 Nasal Cannula 02/08/25 07:08 36.8 C 76 20 128/56 L 96 Nasal Cannula 02/08/25 02:38 37.9 C H 98 H 15 97/63 L 93 Nasal Cannula O2 Flow Rate 02/08/25 13:52 02/08/25 13:52 2 02/08/25 13:03 02/08/25 12:53 02/08/25 10:36 2 02/08/25 07:08 2 02/08/25 02:38 all noted and reviewed including below
[2025-02-08] MEDS: NICOTINE 14 MG/24 HR PATCH TD SCH (16:33)
[2025-02-09 06:02] LABS: Hematocrit (blood only) 25.3 % (42.0-52.0); Hemoglobin 8.0 g/dl (14.0-18.0); Mean Corpuscular Hemoglobin 30.2 pg (25.0-34.0); Mean Corpuscular Volume 95.5 fL (80.0-100.0); Platelet Count 262 K/uL (130-400); RDW Standard Deviation 63.9 fL (36.4-46.3); Red Blood Count 2.65 M/uL (4.70-6.10); White Blood Count 25.33 K/ul (4.8-10.8)
[2025-02-09 06:16] LABS: Anion Gap 6.0 (3-11); Blood Urea Nitrogen 25.0 mg/dl (6-23); Calcium 8.1 mg/dl (8.6-10.3); Carbon Dioxide 27.0 mmol/L (21-32); Chloride 103.0 mmol/L (98-107); Creatinine Clr Calc Pharmacy 58.8 ml/min; Glucose 99.0 mg/dl (70-99(Fasting)); Potassium 2.9 mmol/L (3.5-5.1); Sodium 136.0 mmol/L (136-145)
[2025-02-09 06:20] LABS: Immature Granulocytes # (auto) 0.12 K/uL (0.01-0.20); Immature Granulocytes % (auto) 0.5 %; Toxic Vacuolation 1+
[2025-02-09] MEDS: POTASSIUM CHLORIDE 10 MEQ TABCR PO STA (08:30)
[2025-02-09] MEDS: CHLORTHALIDONE 25 MG TAB PO SCH (08:30)
[2025-02-09] MEDS: ONDANSETRON INJ 2 MG/ML 2 ML VIAL IV PRN (08:31)
[2025-02-09] MEDS: REMOVE NICODERM PATCH SCH (08:32)
[2025-02-09] MEDS: GABAPENTIN 300 MG CAP PO SCH (08:32)
[2025-02-09 08:48] LABS: Iron 29.0 mcg/dl (35-175); Transferrin 207.0 mg/dl (200-360)
--- NOTE | 2025-02-09 08:54 | Infectious Disease Consult ---
Date of Service February 09, 2025 Telehealth Information I performed this visit using a real-time telehealth connection between my location and the patients location ([facility]). After connecting through interactive tele-video, patient was identified by name and date of and/or wristband check.Patient (or authorized healthcare credit resolution representative) was informed that this was a telemedicine visit and it was being conducted confidentially over secure lines. My office door was closed and no one else was present in the room with me.Patient (or authorized healthcare credit resolution representative) provided consent to proceed with the visit, expressed an understanding of privacy and security of the telemedicine visit, and gave permission to have a hospital credit resolution representative in the room in order to assist with the visit and to conduct portions of the visit, as needed. I informed the patient (or authorized healthcare credit resolution representative) that I reviewed their record and presented the opportunity for them to ask any questions regarding the visit today. The patient agreed to participate. GP Bacteremia Assessment & Plan (1) Bacteremia due to methicillin susceptible Staphylococcus aureus (MSSA): Plan: Continue ancef (2) S/P TAVR (transcatheter aortic valve replacement): Plan: Patient will require a MIMI Plan Recommend discontinuing doxycycline and continuing cefazolin .He has a TAVR and will need a MIMI to definitively rule out prosthetic valve endocarditis .Thank you for allowing us to participate in the care of this patient ID will continue to follow History of Present Illness History of Present Illness 69 y/o M PMHx of HLD, COPD, HTN, ulcerative pancolitis, chronic viral hepatitis C, iron deficiency anemia, monoclonal paraproteinemia, tobacco use disorder, narcotic addiction, aortic stenosis status post TAVR, major depressive disorder presented to the ED with complaint of acute shortness of breath and fever.Patient's (who was a RN) reported that patient was very short of breath with temperature of 102.7 F, saturation was 91 to 92% on room air and heart rate was 130s before arrival from home.Patient has had pneumonia twice in the past but denies any recent sick contacts Patient also has multiple superficial ulcers on his left thigh with surrounding redness(from picking his skin), no red streaking redness or tenderness on exam.Patient's blood culture is growing MSSA and he is on ancef and doxycycline and his TTE did not reveal any vegetation Allergies Allergy/AdvReac Type Severity Reaction Status Date / Time No Known Allergies Allergy Unknown Verified 02/07/25 15:26 Home Medications Medication Instructions Recorded Confirmed Type buprenorphine 8 mg-naloxone 2 mg 1.5 ea sublingual DAILY 04/02/19 02/07/25 History sublingual film (Suboxone) mesalamine 1.2 gram tablet,delayed 2.4 gm PO DAILY 04/02/19 02/07/25 History release acetaminophen 500 mg tablet 1,000 mg PO .DAILY WITH LUNCH PRN 08/03/21 02/07/25 History (Tylenol Extra Strength) Pain ferrous sulfate 325 mg (65 mg 325 mg PO 3XWK 08/03/21 02/07/25 History iron) tablet gabapentin 300 mg capsule 300 mg PO BIDWMEAL 08/03/21 02/07/25 History sertraline 100 mg tablet 200 mg PO DAILY 08/03/21 02/07/25 History Oxygen Home #1 ea 12/14/21 01/05/25 Rx albuterol sulfate 90 mcg/actuation 2 inh inhalation QID PRN shortness 12/07/22 02/07/25 Rx aerosol inhaler of breath or wheezing #8.5 grams aspirin 81 mg tablet,delayed 81 mg PO DAILY 12/10/23 02/07/25 History release chlorthalidone 25 mg tablet 25 mg PO Q OTHER DAY 04/24/24 02/07/25 History cholecalciferol (vitamin D3) 125 125 mcg PO DAILY 02/07/25 02/07/25 History mcg (5,000 unit) tablet (Vitamin D3) coenzyme Q10 100 mg capsule (Co 100 mg PO DAILY 02/07/25 02/07/25 History Q-10) gabapentin 300 mg capsule 900 mg PO HS 02/07/25 02/07/25 History mesalamine 1,000 mg rectal 1,000 mg IL Q OTHER DAY 02/07/25 02/07/25 History suppository omeprazole 20 mg capsule,delayed 20 mg PO DAILY 02/07/25 02/07/25 History release prednisone 10 mg tablet 70 mg PO DAILY 02/07/25 02/07/25 History rosuvastatin 20 mg tablet 20 mg PO QPM 02/07/25 02/07/25 History Patient History Medical History (Updated 02/09/25 @ 17:01 by Linda Lopez MD) IBD (inflammatory bowel disease) Anemia COPD (chronic obstructive pulmonary disease) Surgical History (Updated 02/09/25 @ 17:02 by Linda Lopez MD) History of heart valve replacement H/O knee surgery History of back surgery Social History (Updated 12/10/23 @ 16:04 by Renetta Landaverde LPN) Smoking Status: Never smoker Tobacco Type: E-cigarettes / Vaping Age Started Using Tobacco: 11; packs per day: 2; Cigarettes Per Day: 2 packs; Second Hand Exposure: No; Do You Dip or Chew Tobacco: No; Hx Alcohol Use: No Hx Substance Use: No Preferred Language: Iranian Communication Ability: Effective Motorcycle Assembler Required: No Beliefs That Will Affect Care: None Current Living Situation: Spouse current occupation: Retired Feels Safe at Home: Yes Assistive Devices: Cane Review of Systems No respiratory distress Physical Exam Patient awake Results & Data Vital Signs (Past 12 Hours) Vital Signs Temp Pulse Resp BP Pulse Ox O2 Del Method O2 Flow Rate 02/09/25 07:37 36.9 C 77 18 130/80 94 Nasal Cannula 2 02/09/25 02:40 36.7 C 74 18 109/60 97 Nasal Cannula 2.0 02/08/25 23:22 36.5 C 76 18 113/66 97 Nasal Cannula 2.0 Laboratory Results Blood Culture Aerobic Preliminary 02/09/25-955 Organism 1 Staphylococcus aureus Sens Sensitivities to Follow Blood Culture Anaerobic Preliminary 02/09/25-955 Organism 1 Staphylococcus aureus Sens No Sensitivities to Follow Blood Culture PCR Panel If viewing in EMR, results available under LAB Serology tab. Diagnostic Findings No vegetations on TTE
[2025-02-09 08:58] LABS: Folate (Folic Acid),Ser orPlas 12.0 ng/ml (>5.38)
[2025-02-09 08:59] LABS: Vitamin B12 291.0 pg/ml (180-914)
[2025-02-09 09:06] LABS: Ferritin 415.1 ng/ml (8-388)
--- NOTE | 2025-02-09 10:50 | Hospitalist Progress Note ---
Date of Service February 09, 2025 Assessment & Plan (1) Severe sepsis: Plan Bacteremia Left thigh wounds Possible pneumonia Severe sepsis: Secondary to above Patient presents with acute shortness of breath and febrile episode at home Patient has history of recurrent pneumonia. Patient denies cough, denies abdominal pain, denies pain or burning while passing urine, there is no streaking erythema from ulcers in the left thigh. Respiratory pathogen panel and urine analysis negative. Patient is started on vancomycin and cefepime in the ED, continue. Follow admitting blood culture. If blood culture negative and CT scan of the chest negative for infection, cons ider echo to rule out vegetations given history of TAVR. Continue with IV fluid, lactic acid trending down. 02/08 WBC increased to 30K Blood culture showing gram-positive cocci in clusters Repeat blood cultures ordered for tomorrow Echocardiogram CT chest showing possible bilateral lower lobe infiltrates continue daptomycin plus ceftriaxone ID consult 02/09 Fever curve improving Leukocytosis also improving Clinically improving as well Blood culture showing gram-positive cocci in clusters Repeat blood cultures ordered for today Echocardiogram: Left ventricular systolic function is normal Status post TAVR MIRZA valve, no valvular stenosis No significant aortic valvular regurgitation trace mitral digitation Mild tricuspid regurgitation No overt vegetations noted in the study discussed with pharmacy service blood culture unlikely MSSA Will transition to cefazolin for MSSA bacteremia, doxycycline for possible component of pneumonia awaiting ID service recommendations Hypokalemia: potassium 2.9 P.o. potassium ordered Hypomagnesemia: Admitting magnesium of 1.5, replete 1 g, magnesium levels in AM. resolved Other chronic medical conditions: Continue with/resume home meds as when able. Monoclonal paraprotein anemia/anemia: Patient on a steroid, follows Dr. Sutton as an outpatient, continue with PPI while on steroid. Follow-up with hematology upon discharge for ongoing steroid dose adjustment. Ulcerative colitis: Patient with no abdominal pain, continue home mesalamine p.o. and [place]. Hypertension, hyperlipidemia, CAD--- continue home medication. History of TAVR: Echo ordered DVT prophylaxis: Heparin subcu Full code Admission and Anticipated Discharge Date Admission Date: February 07, 2025 Subjective seen sitting up in bed, comfortable, not in distress On 2 L of O2 via nasal cannula States he feels improved today again compared to yesterday No shortness of breath, no cough No chest pain, dizziness, palpitations No fevers or chills No abdominal pain, nausea or vomiting No problems with urination Minimal discomfort over the wound sites of the left thigh No other new symptoms Review of Systems Review of Systems: all noted and negative except for above Physical Exam Physical Exam: General- oriented x 3, not in distress, speaks in sentences with no effort or accessory muscle use Eyes- anicteric Neck- no JVD Lungs- clear breath sounds bilaterally, no crackles or wheezing noted Heart- normal rate, regular rhythm; no murmurs Abdomen- normal bowel sounds, nondistended, soft, nontender Extremities- no pretibial edema, no calf tenderness left thigh-multiple scabbing wounds, no bleeding or discharge, minimal edema, but no erythema/warmth/tenderness Neuro- alert, oriented x 3; no gross focal neurologic deficits Skin- warm & dry Results & Data Results & Data Vital Signs (Past 12 Hours) Vital Signs Temp Pulse Resp BP Pulse Ox O2 Del Method O2 Flow Rate 02/09/25 08:00 96 Room Air 2 02/09/25 07:37 36.9 C 77 18 130/80 94 Nasal Cannula 2 02/09/25 02:40 36.7 C 74 18 109/60 97 Nasal Cannula 2.0 02/08/25 23:22 36.5 C 76 18 113/66 97 Nasal Cannula 2.0 all noted and reviewed including below
[2025-02-09] MEDS: DOXYCYCLINE HYCLATE 100 MG CAP PO SCH (11:15)
[2025-02-09] MEDS: POTASSIUM CHLORIDE 10 MEQ TABCR PO ONE (11:16)
[2025-02-10 07:45] LABS: Hematocrit (blood only) 26.1 % (42.0-52.0); Hemoglobin 8.3 g/dl (14.0-18.0); Mean Corpuscular Hemoglobin 29.7 pg (25.0-34.0); Mean Corpuscular Volume 93.5 fL (80.0-100.0); Platelet Count 227 K/uL (130-400); RDW Standard Deviation 60.1 fL (36.4-46.3); Red Blood Count 2.79 M/uL (4.70-6.10); White Blood Count 17.53 K/ul (4.8-10.8)
[2025-02-10 08:02] LABS: Anisocytosis Present; Immature Granulocytes # (auto) 0.09 K/uL (0.01-0.20); Immature Granulocytes % (auto) 0.5 %; Poikilocytosis Present; Polychromasia 1+; Reticulocytes # 0.070 10^6/uL (0.020-0.100)
--- NOTE | 2025-02-10 08:09 | Cardiology Consultation ---
Date of Consultation February 10, 2025 Assessment & Plan (1) Severe sepsis: (2) Acute hypokalemia: 69-year-old male with a history of transcatheter aortic valve implantation in 2023 presents with sepsis and has been found to have methicillin sensitive Staph aureus bacteremia. He had undergone invasive coronary angiography in advance of the transcatheter aortic valve procedure in 2023 with angiographically normal coronary arteries. Patient improving clinically on antibiotic therapy and is afebrile. He is mentating well. He had undergone an EGD on 11/21/2024 for the evaluation of chronic anemia with findings of mild nonerosive esophagitis. 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 Hemoglobin stable. Patient with left thigh skin excoriations, which is likely the source. Potassium mildly low yesterday and again today with today's measurement of 3.3 mmol/L. Recommend supplementation with potassium chloride 20 mEq x 1. Agree with transesophageal echocardiogram given bacteremia and history of prosthetic valve. Transthoracic study performed earlier this hospital stay without significant abnormality. Informed consent for transesophageal echocardiogram obtained and patient elects to proceed. Will plan on performing the procedure this afternoon. Patient's breakfast tray was withdrawn this morning before he had the opportunity to eat and therefore he has been n.p.o. for the sufficient amount of time. I spent a total of 60 minutes on the date of service in preparation, delivery, and documentation of the care provided to this patient, excluding any time spent in the performance of separately billed services. Andrew Hodgson DO History of Present Illness Attending Physician: Alex James MD History of Present Illness Jesse Manuel is a 69-year-old male seen in cardiology consultation per the request of Dr. James for the evaluation of methicillin-susceptible Staph aureus bacteremia. Patient presented via the emergency department on 02/07/2025 with subjective shortness of breath and fever of 102.7 F at home. On presentation he was found to have multiple ulcerations of the left thigh with surrounding erythema with suspicion that the patient has been picking at his skin. 2/2 Blood cultures obtained the day of presentation 02/07/2025 revealed that methicillin sensitive Staph aureus. Repeat cultures obtained on 02/09/2025 without growth to date. Transthoracic echocardiogram performed 02/08/2025 revealed no evidence of vegetation within the limitations of the transthoracic imaging modality. EKG performed on arrival 06/09/2024 revealed sinus tachycardia at 128 bpm. Patient is currently receiving IV cefazolin and heart rate has improved. Leukocytosis with white blood cell count of 32 K on arrival which has improved to 15.53 today. Cardiology consulted for consideration of transesophageal echocardiogram. Patient states he is feeling improved compared to when he came to the hospital. Shortness of breath improved. He states his mental status is improved per his impression. Cardiac Problems: 1.Severe aortic stenosis, status post TAVR (29mm Ledy 3 resilia valve) 10/25/2023 at [facility] with Dr. Anju coates.Angiographically normal coronary arteries per pre TAVR cardiac catheterization, 10/05/2023 2.Chronic obstructive/restrictive lung disease with dextroscoliosis and exertional dyspnea, nocturnal hypoxia on oxygen supplementation 3.Transient mild LV dysfunction in the setting of acute pneumonia respiratory failure 2015 with return to normal ejection fraction 4.Ulcerative colitis with acute flare February 2019 5. 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 Previously treated for hepatitis C Allergies Allergy/AdvReac Type Severity Reaction Status Date / Time No Known Allergies Allergy Unknown Verified 02/07/25 15:26 Home Medications Medication Instructions Recorded Confirmed Type buprenorphine 8 mg-naloxone 2 mg 1.5 ea sublingual DAILY 04/02/19 02/07/25 History sublingual film (Suboxone) mesalamine 1.2 gram tablet,delayed 2.4 gm PO DAILY 04/02/19 02/07/25 History release acetaminophen 500 mg tablet 1,000 mg PO .DAILY WITH LUNCH PRN 08/03/21 02/07/25 History (Tylenol Extra Strength) Pain ferrous sulfate 325 mg (65 mg 325 mg PO 3XWK 08/03/21 02/07/25 History iron) tablet gabapentin 300 mg capsule 300 mg PO BIDWMEAL 08/03/21 02/07/25 History sertraline 100 mg tablet 200 mg PO DAILY 08/03/21 02/07/25 History Oxygen Home #1 ea 12/14/21 01/05/25 Rx albuterol sulfate 90 mcg/actuation 2 inh inhalation QID PRN shortness 12/07/22 02/07/25 Rx aerosol inhaler of breath or wheezing #8.5 grams aspirin 81 mg tablet,delayed 81 mg PO DAILY 12/10/23 02/07/25 History release chlorthalidone 25 mg tablet 25 mg PO Q OTHER DAY 04/24/24 02/07/25 History cholecalciferol (vitamin D3) 125 125 mcg PO DAILY 02/07/25 02/07/25 History mcg (5,000 unit) tablet (Vitamin D3) coenzyme Q10 100 mg capsule (Co 100 mg PO DAILY 02/07/25 02/07/25 History Q-10) gabapentin 300 mg capsule 900 mg PO HS 02/07/25 02/07/25 History mesalamine 1,000 mg rectal 1,000 mg VT Q OTHER DAY 02/07/25 02/07/25 History suppository omeprazole 20 mg capsule,delayed 20 mg PO DAILY 02/07/25 02/07/25 History release prednisone 10 mg tablet 70 mg PO DAILY 02/07/25 02/07/25 History rosuvastatin 20 mg tablet 20 mg PO QPM 02/07/25 02/07/25 History Patient History Medical History (Updated 02/10/25 @ 10:08 by Carlos Hadley MD) Anemia Hepatitis C carrier Narcotic abuse in remission Nocturnal hypoxemia due to obstructive chronic bronchitis Aortic stenosis s/p TAVR now with normal function Bacteremia due to methicillin susceptible Staphylococcus aureus (MSSA) IBD (inflammatory bowel disease) COPD (chronic obstructive pulmonary disease) Surgical History (Updated 02/10/25 @ 10:04 by Carlos Hadley MD) S/P TAVR (transcatheter aortic valve replacement) History of heart valve replacement H/O knee surgery History of back surgery Social History (Updated 12/10/23 @ 16:04 by Renetta Landaverde LPN) Smoking Status: Never smoker Tobacco Type: E-cigarettes / Vaping Age Started Using Tobacco: 11; packs per day: 2; Cigarettes Per Day: 2 packs; Second Hand Exposure: No; Do You Dip or Chew Tobacco: No; Hx Alcohol Use: No Hx Substance Use: No Preferred Language: Tamaz[place] Communication Ability: Effective Student Admissions Clerk Required: No Beliefs That Will Affect Care: None Current Living Situation: Spouse current occupation: Retired Feels Safe at Home: Yes Assistive Devices: Cane Review of Systems Review of Systems: All systems reviewed & are unremarkable except as noted in HPI & below Physical Exam Constitutional: + ill appearing (Chronically ill in appe arance without acute distress) Eyes: PERRL, conjunctivae normal, anicteric sclerae ENMT: Mouth: + edentulous Neck: trachea midline Respiratory: normal respiratory effort, lungs clear to auscultation Cardiovascular: RRR, no murmur, no edema Vessels: no JVD Gastrointestinal (Abdomen): normal bowel sounds, soft, nontender, no hepatosplenomegaly Skin: Left anterior thigh currently wrapped. Reportedly, erythematous skin ulcerations observed on admission. Neurologic: PERRL, EOMI, accommodation nl, no face palsy, no dysarthria Results & Data Vital Signs (Past 12 Hours) Vital Signs Temp Pulse Pulse Resp BP Pulse Ox O2 Del Method 02/10/25 07:16 36.8 C 17 104/63 93 Room Air 02/10/25 02:44 36 C L 75 16 110/68 94 Room Air 02/09/25 23:15 36.8 C 70 20 136/73 95 Room Air 02/09/25 21:53 67 02/09/25 21:30 Room Air Laboratory Results Cardiac Enzymes 02/10/25 Range/Units 06:43 AST 21 (13-39) U/L Lactate Dehydrogenase 508 H (86-244) U/L CBC 02/10/25 Range/Units 06:43 WBC 17.53 H (4.8-10.8) K/ul RBC 2.79 L (4.70-6.10) M/uL Hgb 8.3 L (14.0-18.0) g/dl Hct 26.1 L (42.0-52.0) % Plt Count 227 (130-400) K/uL Neut # (Auto) 15.34 H (1.40-6.50) K/uL Lymph # (Auto) 1.41 (1.20-3.40) K/uL [place] # (Auto) 0.61 H (0.11-0.59) K/uL Eos # (Auto) 0.06 (0.00-0.50) K/uL Baso # (Auto) 0.02 (0.00-0.20) K/uL Comprehensive Metabolic Panel 02/10/25 Range/Units 06:43 Sodium 136 (136-145) mmol/L Potassium 3.3 L (3.5-5.1) mmol/L Chloride 104 (98-107) mmol/L Carbon Dioxide 25 (21-32) mmol/L BUN 25 H (6-23) mg/dl Creatinine 0.88 (0.6-1.4) mg/dl Glucose 98 (70-99(Fasting)) mg/dl Calcium 8.7 (8.6-10.3) mg/dl AST 21 (13-39) U/L ALT 15 (7-52) U/L Alkaline Phosphatase 54 (34-104) U/L Total Protein 6.9 (6.0-8.3) gm/dl Albumin 3.4 (3.4-5.0) gm/dl Intake and Output 02/09/25 02/10/25 02/10/25 22:59 06:59 14:59 Intake Total 250 / 1760 450 / 1760 Output Total 650 / 2175 725 / 2175 Balance -400 / -415 -275 / -415 Intake: Oral 250 / 1760 450 / 1760 Output: Urine 650 / 2175 725 / 2175 Other: Weight 75.8 kg 75.8 kg Weight Measurement Method Built in [facility] Patient Weight 02/11/25 06:59 Weight 75.8 kg Diagnostic Findings Telemetry today reveals sinus rhythm in the 70s rare isolated premature ventricular contractions. PG Care Time/CCT Total # of Minutes Spent Total Time Spent with Patient: Total time spent is greater than 50% in coordination of care (as documented) at patient's floor/unit and/or counseling patient: Coding Level of Care Code 73075 IN/OBS CONSULT LVL 4,60M Diagnoses Severe sepsis A41.9; R65.20 Acute hypokalemia E87.6
[2025-02-10 08:13] LABS: Anion Gap 7.0 (3-11); Bilirubin,Total 0.3 mg/dl (0.2-1.0); Calcium 8.7 mg/dl (8.6-10.3); Carbon Dioxide 25.0 mmol/L (21-32); Chloride 104.0 mmol/L (98-107); Potassium 3.3 mmol/L (3.5-5.1); Sodium 136.0 mmol/L (136-145)
[2025-02-10 08:19] LABS: Alanine Aminotransferase 15.0 U/L (7-52); Albumin Globulin Ratio 1.0 (0.9-2); Alkaline Phosphatase 54.0 U/L (34-104); Blood Urea Nitrogen 25.0 mg/dl (6-23); Creatinine Clr Calc Pharmacy 69.5 ml/min; Globulin 3.5 gm/dl (2.5-4.0); Glucose 98.0 mg/dl (70-99(Fasting)); Total Protein 6.9 gm/dl (6.0-8.3)
--- NOTE | 2025-02-10 10:08 | Anesthesiology Consultation ---
Date of Service February 10, 2025 Assessment & Plan (1) Encounter for pre-operative examination: Chart Review Chart Review: Acceptable Risk for Surgery History Surgery Operation Date: 02/10/25 12:15 Proposed Procedures p Trans-Esophageal Echo - Robson Hodgson DO Height/Weight Height: 5 ft 6 in Weight: 75.8 kg Allergies Allergy/AdvReac Type Severity Reaction Status Date / Time No Known Allergies Allergy Unknown Verified 02/07/25 15:26 Medications Home Medications Medication Instructions Recorded Confirmed Last Taken buprenorphine 8 mg-naloxone 2 mg 1.5 ea sublingual DAILY 04/02/19 02/07/25 02/06/25 sublingual film (Suboxone) mesalamine 1.2 gram tablet,delayed 2.4 gm PO DAILY 04/02/19 02/07/25 02/06/25 release acetaminophen 500 mg tablet 1,000 mg PO .DAILY WITH LUNCH PRN 08/03/21 02/07/25 08/02/21 (Tylenol Extra Strength) Pain ferrous sulfate 325 mg (65 mg 325 mg PO 3XWK 08/03/21 02/07/25 08/03/21 iron) tablet gabapentin 300 mg capsule 300 mg PO BIDWMEAL 08/03/21 02/07/25 02/06/25 sertraline 100 mg tablet 200 mg PO DAILY 08/03/21 02/07/25 02/06/25 Oxygen Home #1 ea 12/14/21 01/05/25 Unknown albuterol sulfate 90 mcg/actuation 2 inh inhalation QID PRN shortness 12/07/22 02/07/25 Unknown aerosol inhaler of breath or wheezing #8.5 grams aspirin 81 mg tablet,delayed 81 mg PO DAILY 12/10/23 02/07/25 02/06/25 release chlorthalidone 25 mg tablet 25 mg PO Q OTHER DAY 04/24/24 02/07/25 02/06/25 cholecalciferol (vitamin D3) 125 125 mcg PO DAILY 02/07/25 02/07/25 02/06/25 mcg (5,000 unit) tablet (Vitamin D3) coenzyme Q10 100 mg capsule (Co 100 mg PO DAILY 02/07/25 02/07/25 02/06/25 Q-10) gabapentin 300 mg capsule 900 mg PO HS 02/07/25 02/07/25 02/06/25 mesalamine 1,000 mg rectal 1,000 mg RI Q OTHER DAY 02/07/25 02/07/25 02/06/25 suppository omeprazole 20 mg capsule,delayed 20 mg PO DAILY 02/07/25 02/07/25 02/06/25 release prednisone 10 mg tablet 70 mg PO DAILY 02/07/25 02/07/25 02/06/25 rosuvastatin 20 mg tablet 20 mg PO QPM 02/07/25 02/07/25 02/06/25 Active Medications Generic Name Dose Route Start Last Admin Trade Name Eva PRN Reason Stop Dose Admin Acetaminophen 650 mg 02/07/25 20:00 02/09/25 21:18 Acetaminophen 325 Mg Tab PO 03/09/25 19:59 650 mg Q4H PRN Administration Pain or Fever Aspirin 81 mg 02/08/25 09:00 02/10/25 08:18 Aspirin 81 Mg Ectab PO 03/10/25 08:59 81 mg DAILY CRISTINA Administration Buprenorphine/Naloxone 1.5 tab 02/08/25 09:00 02/10/25 08:16 Buprenorphine/Naloxone 8/2 Mg Tab SL 03/10/25 08:59 1.5 tab DAILY CRISTINA Administration Chlorthalidone 25 mg 02/09/25 09:00 02/09/25 08:30 Chlorthalidone 25 Mg Tab PO 03/11/25 08:59 25 mg [id number] CRISTINA Administration Gabapentin 900 mg 02/07/25 21:00 02/09/25 21:20 Gabapentin 300 Mg Cap PO 03/09/25 20:59 900 mg HS CRISTINA Administration Gabapentin 300 mg 02/09/25 08:00 02/10/25 08:18 Gabapentin 300 Mg Cap PO 03/11/25 07:59 300 mg BID@0800,1300 CRISTINA Administration Heparin Sodium (Porcine) 5,000 units 02/07/25 21:00 02/10/25 08:16 Heparin Sod 5,000 Unit/0.5 Ml Vial SQ 03/09/25 20:59 5,000 units Q12 CRISTINA Administration Cefazolin Sodium 2,000 mg in 15 mls @ 3.75 mls/min 02/09/25 10:00 02/10/25 02:38 Ancef 2000mg IV 02/23/25 09:59 3.75 mls/min Q8H CRISTINA Administration Lactobacillus Acidophilus 1,250 mg 02/08/25 09:00 02/10/25 08:18 Advanced Probiotic 625 Mg Capsule PO 03/10/25 08:59 1,250 mg DAILY CRISTINA Administration Mesalamine 2,400 mg 02/08/25 09:00 02/10/25 08:17 Mesalamine 800 Mg Tabcr PO 03/10/25 08:59 2,400 mg DAILY CRISTINA Administration Miscellaneous 1 each 02/08/25 08:00 02/10/25 08:07 Mesalamine 1,000 Mg Suppository- Order Awaiting Action N/A 03/10/25 07:59 Not Given QS CRISTINA Miscellaneous 1 each 02/09/25 08:59 02/10/25 08:18 Remove Nicoderm Patch N/A 03/11/25 08:58 1 each DAILY@0859 CRISTINA Administration Nicotine 1 patch 02/08/25 15:45 02/10/25 08:19 Nicotine 14 Mg/24 Hr Patch TD 03/10/25 15:44 1 patch QAM CRISTINA Administration Ondansetron HCl 4 mg 02/07/25 16:41 02/09/25 08:31 Ondansetron Inj 2 Mg/Ml 2 Ml Vial IV 03/09/25 16:40 4 mg Q6H PRN Administration Nausea Pantoprazole Sodium 40 mg 02/08/25 09:00 02/10/25 08:19 Pantoprazole 40 Mg Tab PO 03/10/25 08:59 40 mg DAILY CRISTINA Administration Prednisone 70 mg 02/08/25 09:00 02/10/25 08:19 Prednisone 20 Mg Tab PO 03/10/25 08:59 70 mg DAILY CRISTINA Administration Rosuvastatin Calcium 20 mg 02/07/25 21:00 02/07/25 20:16 Rosuvastatin Calcium 20 Mg Tab PO 03/09/25 20:59 20 mg QPM CRISTINA Administration Sertraline HCl 200 mg 02/08/25 09:00 02/10/25 08:18 Sertraline Hcl 100 Mg Tablet PO 03/10/25 08:59 200 mg DAILY CRISTINA Administration Past Medical History Medical History (Updated 02/10/25 @ 10:08 by Carlos Hadley MD) Anemia Hepatitis C carrier Narcotic abuse in remission Nocturnal hypoxemia due to obstructive chronic bronchitis Aortic stenosis s/p TAVR now with normal function Bacteremia due to methicillin susceptible Staphylococcus aureus (MSSA) IBD (inflammatory bowel disease) COPD (chronic obstructive pulmonary disease) Past Surgical History Surgical History (Updated 02/10/25 @ 10:04 by Carlos Hadley MD) S/P TAVR (transcatheter aortic valve replacement) History of heart valve replacement H/O knee surgery History of back surgery Social History Smoking Status: Never smoker tobacco type: e-cigarettes Smoking cigarettes per day: 2 packs Do You Dip or Chew Tobacco: No Hx Alcohol Use: No Hx Substance Use: No substance use type: former substance user Physical Exam Vital Signs Last Vital Signs Temp 36.8 C 02/10/25 07:16 Pulse 79 02/10/25 08:00 Resp 17 02/10/25 07:16 BP 104/63 02/10/25 07:16 Pulse Ox 93 02/10/25 07:16 O2 Del Method Room Air 02/10/25 07:16 O2 Flow Rate 2 02/09/25 08:00 Testing Laboratory Results 02/10/25 06:43 02/10/25 06:43 PT 10.3 Seconds (9.0-12.0) 02/07/25 14:18 INR 0.9 (0.9-1.1) 02/07/25 14:18 Urine Color Yellow 02/07/25 14:31 Urine Appearance Clear (Clear) 02/07/25 14:31 Urine pH 7.5 (4.5-7.5) 02/07/25 14:31 Ur Specific [place] 1.014 (1.000-1.030) 02/07/25 14:31 Urine Protein Negative (Negative) 02/07/25 14:31 Urine Glucose (UA) Negative (Negative) 02/07/25 14:31 Urine Ketones Negative (Negative) 02/07/25 14:31 Urine Nitrite Negative (Negative) 02/07/25 14:31 Ur Leukocyte Esterase Negative (Negative) 02/07/25 14:31 02/07/25 14:18 Aerobic Blood Culture - Final Blood Staphylococcus aureus Anaerobic Blood Culture - Final Staphylococcus aureus 02/09/25 05:39 Aerobic Blood Culture - Preliminary Blood No growth in Aerobic bottle after 24 hours. Anaerobic Blood Culture - Preliminary No growth in Anaerobic bottle after 24 hours. 02/09/25 05:45 Aerobic Blood Culture - Preliminary Blood No growth in Aerobic bottle after 24 hours. Anaerobic Blood Culture - Preliminary No growth in Anaerobic bottle after 24 hours. 02/07/25 14:18 Aerobic Blood Culture - Final Blood Staphylococcus aureus Anaerobic Blood Culture - Final Staphylococcus aureus Echocardiogram Date: 02/08/25 LV Function: normal Valvular Disease: + no significant valvular disease
[2025-02-10] MEDS: POTASSIUM CHLORIDE CRTAB 20 MEQ TABCR PO STA (10:48)
[2025-02-10] MEDS: BENZOCAINE/TETRACAIN/BUTAM 50 APPLN/5 GM CAN EXT ONE (12:39)
[2025-02-10] MEDS ORDERED: PROPOFOL IV EMULSION 10 MG/ML 20 ML VIAL IV ONE (13:06)
[2025-02-10] MEDS ORDERED: PHENYLEPHRINE 100MCG/ML 5ML SYR ONE (13:06)
[2025-02-10] MEDS ORDERED: LIDOCAINE 2% 2 ML VIAL/AMP(20MG/ML) INFIL ONE (13:06)
--- NOTE | 2025-02-10 13:07 | Anesthesiology Progress Note ---
Date of Service February 10, 2025 Anesthesia Post Procedure Vital Signs Vital Signs: Temp Pulse Pulse Pulse Resp BP Pulse Ox 02/10/25 13:00 63 18 104/60 97 02/10/25 11:57 71 18 128/76 99 02/10/25 10:49 36.6 C 72 18 130/79 91 02/10/25 08:00 79 02/10/25 07:16 36.8 C 17 104/63 93 02/10/25 02:44 36 C L 75 16 110/68 94 02/09/25 23:15 36.8 C 70 20 136/73 95 02/09/25 21:53 67 02/09/25 21:30 02/09/25 19:17 36.7 C 83 18 117/65 97 02/09/25 16:00 36.6 C 81 18 114/64 90 O2 Del Method O2 Flow Rate 02/10/25 13:00 Nasal Cannula 2 02/10/25 11:57 Room Air 02/10/25 10:49 Room Air 02/10/25 08:00 02/10/25 07:16 Room Air 02/10/25 02:44 Room Air 02/09/25 23:15 Room Air 02/09/25 21:53 02/09/25 21:30 Room Air 02/09/25 19:17 Room Air 02/09/25 16:00 Room Air Pain Intensity Chest: Pain Intensity: 6 Transfer of Care Handoff Completed per policy Notes Mental Status: alert / awake / arousable Patient Amnestic to Procedure: Yes Nausea / Vomiting: adequately controlled Pain: adequately controlled Airway Patency, RR, SpO2: stable & adequate BP & HR: stable & adequate Hydration State: stable & adequate Anesthetic Complications: no major complications apparent
[2025-02-10 14:42] LABS: Toxic Vacuolation 3+
--- NOTE | 2025-02-10 15:57 | Hospitalist Progress Note ---
Date of Service February 10, 2025 Assessment & Plan (1) Severe sepsis: Plan Bacteremia Left thigh wounds Possible pneumonia Severe sepsis: Secondary to above Patient presents with acute shortness of breath and febrile episode at home Patient has history of recurrent pneumonia. Patient denies cough, denies abdominal pain, denies pain or burning while passing urine, there is no streaking erythema from ulcers in the left thigh. Respiratory pathogen panel and urine analysis negative. Patient is started on vancomycin and cefepime in the ED, continue. Follow admitting blood culture. If blood culture negative and CT scan of the chest negative for infection, cons ider echo to rule out vegetations given history of TAVR. Continue with IV fluid, lactic acid trending down. 02/08 WBC increased to 30K Blood culture showing gram-positive cocci in clusters Repeat blood cultures ordered for tomorrow Echocardiogram CT chest showing possible bilateral lower lobe infiltrates continue daptomycin plus ceftriaxone ID consult 02/09 Fever curve improving Leukocytosis also improving Clinically improving as well Blood culture showing gram-positive cocci in clusters Repeat blood cultures ordered for today Echocardiogram: Left ventricular systolic function is normal Status post TAVR MIRZA valve, no valvular stenosis No significant aortic valvular regurgitation trace mitral digitation Mild tricuspid regurgitation No overt vegetations noted in the study discussed with pharmacy service blood culture unlikely MSSA Will transition to cefazolin for MSSA bacteremia, doxycycline for possible component of pneumonia awaiting ID service recommendations 02/10 s/p MIMI: no vegetation/abscess ID recommends 4 weeks of IV Cefazolin Hypokalemia: potassium 2.9 P.o. potassium ordered Hypomagnesemia: Admitting magnesium of 1.5, replete 1 g, magnesium levels in AM. resolved Other chronic medical conditions: Continue with/resume home meds as when able. Monoclonal paraprotein anemia/anemia: Patient on a steroid, follows Dr. Sutton as an outpatient, continue with PPI while on steroid. Follow-up with hematology upon discharge for ongoing steroid dose adjustment. Hg stable at 8, Retic 2.37, LDH 508 Haptoglobin pending Ulcerative colitis: Patient with no abdominal pain, continue home mesalamine p.o. and IN. Hypertension, hyperlipidemia, CAD--- continue home medication. History of TAVR: Echo noted DVT prophylaxis: Heparin subcu Full code Admission and Anticipated Discharge Date Admission Date: February 07, 2025 Subjective seen resting in bed, comfortable Having lunch, in good spirits States he feels fine overall No chest pain shortness of breath, palpitations, dizziness No leg pain No fevers or chills No other new symptoms Review of Systems 2 Review of Systems: all noted and negative except for above Physical Exam Physical Exam: General- oriented x 3, not in distress, speaks in sentences with no effort or accessory muscle use Eyes- anicteric Neck- no JVD Lungs- clear breath sounds bilaterally, no rales/wheezes Heart- normal rate, regular rhythm; no murmurs Abdomen- normal bowel sounds, nondistended, soft, nontender Extremities- no pretibial edema, no calf tenderness Neuro- alert, oriented x 3; no gross focal neurologic deficits Skin- warm & dry Results & Data Results & Data Vital Signs (Past 12 Hours) Vital Signs Temp Pulse Pulse Pulse Resp BP Pulse Ox 02/10/25 15:33 73 02/10/25 14:18 92 H 18 118/72 95 02/10/25 13:45 57 L 18 109/67 90 02/10/25 13:30 61 18 109/67 92 02/10/25 13:15 60 18 106/67 92 02/10/25 13:00 63 18 104/60 97 02/10/25 11:57 71 18 128/76 99 02/10/25 10:49 36.6 C 72 18 130/79 91 02/10/25 08:00 79 02/10/25 07:16 36.8 C 17 104/63 93 O2 Del Method O2 Flow Rate 02/10/25 15:33 02/10/25 14:18 Room Air 02/10/25 13:45 Nasal Cannula 2 02/10/25 13:30 Nasal Cannula 2 02/10/25 13:15 Nasal Cannula 2 02/10/25 13:00 Nasal Cannula 2 02/10/25 11:57 Room Air 02/10/25 10:49 Room Air 02/10/25 08:00 02/10/25 07:16 Room Air all noted and reviewed including below
[2025-02-10] MEDS: POTASSIUM CHLORIDE 10 MEQ TABCR PO STA (16:42)
[2025-02-11 06:27] LABS: Hematocrit (blood only) 26.9 % (42.0-52.0); Hemoglobin 9.0 g/dl (14.0-18.0); Immature Granulocytes # (auto) 0.13 K/uL (0.01-0.20); Immature Granulocytes % (auto) 0.9 %; Mean Corpuscular Hemoglobin 30.9 pg (25.0-34.0); Mean Corpuscular Volume 92.4 fL (80.0-100.0); Platelet Count 272 K/uL (130-400); RDW Standard Deviation 59.0 fL (36.4-46.3); Red Blood Count 2.91 M/uL (4.70-6.10); White Blood Count 13.89 K/ul (4.8-10.8)
[2025-02-11 06:42] LABS: Alanine Aminotransferase 14.0 U/L (7-52); Albumin Globulin Ratio 1.0 (0.9-2); Alkaline Phosphatase 48.0 U/L (34-104); Anion Gap 6.0 (3-11); Bilirubin,Total 0.3 mg/dl (0.2-1.0); Blood Urea Nitrogen 29.0 mg/dl (6-23); Calcium 8.9 mg/dl (8.6-10.3); Carbon Dioxide 27.0 mmol/L (21-32); Chloride 103.0 mmol/L (98-107); Creatinine Clr Calc Pharmacy 60.5 ml/min; Globulin 3.6 gm/dl (2.5-4.0); Glucose 91.0 mg/dl (70-99(Fasting)); Potassium 3.4 mmol/L (3.5-5.1); Sodium 136.0 mmol/L (136-145); Total Protein 7.2 gm/dl (6.0-8.3)
[2025-02-11] MEDS: POTASSIUM CHLORIDE CRTAB 20 MEQ TABCR PO SCH (09:48)
[2025-02-11 11:34] LABS: Cdiff Toxin B Gene (2yr or >) Negative Cdiff Gene (Neg)
--- NOTE | 2025-02-11 12:44 | Cardiology Progress Note ---
Date of Service February 11, 2025 Assessment & Plan (1) Severe sepsis: (2) Acute hypokalemia: Plan: 69-year-old male with a history of transcatheter aortic valve implantation in 2023 presents with sepsis and has been found to have methicillin sensitive Staph aureus bacteremia. He had undergone invasive coronary angiography in advance of the transcatheter aortic valve procedure in 2023 with angiographically normal coronary arteries. Patient improving clinically on antibiotic therapy and is afebrile. He is mentating well. He had undergone an EGD on 11/21/2024 for the evaluation of chronic anemia with findings of mild nonerosive esophagitis. 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 Hemoglobin stable. Patient with left thigh skin excoriations, which is likely the source. * Repeat blood cultures 02/09/2025 without growth thus far. Continue cefazolin. Supplement potassium. * Cardiology to sign off. Call with questions or concerns I spent a total of 35 minutes on the date of service in preparation, delivery, and documentation of the care provided to this patient, excluding any time spent in the performance of separately billed services. Andrew Hodgson DO Admission and Anticipated Discharge Date Admission Date: February 07, 2025 Subjective Patient seen in cardiology follow-up. Tolerated transesophageal echocardiogram yesterday without complication. Denies difficulty swallowing today. Afebrile. Telemetry reveals sinus rhythm in the 60s. Physical Exam Constitutional: + ill appearing (Chronically ill in appe arance without acute distress) Eyes: PERRL, conjunctivae normal, anicteric sclerae ENMT: Mouth: + edentulous Neck: trachea midline Respiratory: normal respiratory effort, lungs clear to auscultation Cardiovascular: RRR, no murmur, no edema Vessels: no JVD Gastrointestinal (Abdomen): normal bowel sounds, soft, nontender, no hepatosplenomegaly Neurologic: PERRL, EOMI, accommodation nl, no face palsy, no dysarthria Results & Data Vital Signs (Past 12 Hours) Vital Signs Temp Pulse Pulse Resp BP Pulse Ox O2 Del Method 02/11/25 11:10 36.9 C 67 117/76 91 Room Air 02/11/25 08:00 55 L 02/11/25 07:12 36.8 C 53 L 18 135/71 96 Room Air 02/11/25 03:00 36.8 C 65 16 127/77 92 Room Air Laboratory Results Cardiac Enzymes 02/11/25 Range/Units 05:38 AST 22 (13-39) U/L CBC 02/11/25 Range/Units 05:38 WBC 13.89 H (4.8-10.8) K/ul RBC 2.91 L (4.70-6.10) M/uL Hgb 9.0 L (14.0-18.0) g/dl Hct 26.9 L (42.0-52.0) % Plt Count 272 (130-400) K/uL Neut # (Auto) 10.62 H (1.40-6.50) K/uL Lymph # (Auto) 2.21 (1.20-3.40) K/uL [place] # (Auto) 0.85 H (0.11-0.59) K/uL Eos # (Auto) 0.07 (0.00-0.50) K/uL Baso # (Auto) 0.01 (0.00-0.20) K/uL Comprehensive Metabolic Panel 02/11/25 Range/Units 05:38 Sodium 136 (136-145) mmol/L Potassium 3.4 L (3.5-5.1) mmol/L Chloride 103 (98-107) mmol/L Carbon Dioxide 27 (21-32) mmol/L BUN 29 H (6-23) mg/dl Creatinine 1.01 (0.6-1.4) mg/dl Glucose 91 (70-99(Fasting)) mg/dl Calcium 8.9 (8.6-10.3) mg/dl AST 22 (13-39) U/L ALT 14 (7-52) U/L Alkaline Phosphatase 48 (34-104) U/L Total Protein 7.2 (6.0-8.3) gm/dl Albumin 3.6 (3.4-5.0) gm/dl PG Care Time/CCT Total # of Minutes Spent Total Time Spent with Patient: Total time spent is greater than 50% in coordination of care (as documented) at patient's floor/unit and/or counseling patient: Coding Level of Care Code 73829 SUB INP/OBS CARE 2/35MIN Diagnoses Severe sepsis A41.9; R65.20 Acute hypokalemia E87.6
--- NOTE | 2025-02-11 13:37 | Hospitalist Progress Note ---
Date of Service February 11, 2025 Assessment & Plan (1) Severe sepsis: Plan Bacteremia Left thigh wounds Possible pneumonia Severe sepsis: Secondary to above Patient presents with acute shortness of breath and febrile episode at home Patient has history of recurrent pneumonia. Patient denies cough, denies abdominal pain, denies pain or burning while passing urine, there is no streaking erythema from ulcers in the left thigh. Respiratory pathogen panel and urine analysis negative. Patient is started on vancomycin and cefepime in the ED, continue. Follow admitting blood culture. If blood culture negative and CT scan of the chest negative for infection, con rotary drier operator echo to rule out vegetations given history of TAVR. Continue with IV fluid, lactic acid trending down. Echocardiogram: Left ventricular systolic function is normal Status post TAVR MIRZA valve, no valvular stenosis No significant aortic valvular regurgitation trace mitral digitation Mild tricuspid regurgitation No overt vegetations noted in the study 02/11 Improving overall Afebrile, leukocytosis improving First blood cultures: MSSA Repeat blood cultures: Negative Status post MIMI no vegetation or abscess ID recommending 4 weeks of IV cefazolin Midline placement ordered Case management working on home health service Hypokalemia: potassium 2.9 P.o. potassium ordered Hypomagnesemia: Admitting magnesium of 1.5, replete 1 g, magnesium levels in AM. resolved Other chronic medical conditions: Continue with/resume home meds as when able. Monoclonal paraprotein anemia/anemia: Patient on a steroid, follows Dr. Sutton as an outpatient, continue with PPI while on steroid. Follow-up with hematology upon discharge for ongoing steroid dose adjustment. Hg stable at 8-9, Retic 2.37, LDH 508 Haptoglobin 128 Discussed with outpatient med peds Dr. Adriano Sutton, continue usual prednisone 70 mg p.o. daily for now Ulcerative colitis: Patient with no abdominal pain, continue home mesalamine p.o. and NV. Hypertension, hyperlipidemia, CAD--- continue home medication. History of TAVR: Echo noted DVT prophylaxis: Heparin subcu Full code disposition Anticipate discharge to home tomorrow with IV cefazolin q8h x 4 weeks Admission and Anticipated Discharge Date Admission Date: February 07, 2025 Subjective seen resting in bed, comfortable states he feels fine overall No fevers or chills No leg pain No other new symptoms Review of Systems Review of Systems: all noted and negative except for above Physical Exam Physical Exam: General- oriented x 3, not in distress, speaks in sentences with no effort or accessory muscle use Eyes- anicteric Neck- no JVD Lungs- clear breath sounds bilaterally, no rales/wheezes Heart- normal rate, regular rhythm; no murmurs Abdomen- normal bowel sounds, nondistended, soft, nontender Extremities- no pretibial edema, no calf tenderness left thigh: Small scabbing wounds anterior aspect healing well Neuro- alert, oriented x 3; no gross focal neurologic deficits Skin- warm & dry Results & Data Results & Data Vital Signs (Past 12 Hours) Vital Signs Temp Pulse Pulse Resp BP Pulse Ox O2 Del Method 02/11/25 11:10 36.9 C 67 117/76 91 Room Air 02/11/25 08:00 55 L 02/11/25 07:12 36.8 C 53 L 18 135/71 96 Room Air 02/11/25 03:00 36.8 C 65 16 127/77 92 Room Air all noted and reviewed including below
[2025-02-12 05:54] LABS: Hematocrit (blood only) 30.3 % (42.0-52.0); Hemoglobin 9.6 g/dl (14.0-18.0); Immature Granulocytes # (auto) 0.12 K/uL (0.01-0.20); Immature Granulocytes % (auto) 1.0 %; Mean Corpuscular Hemoglobin 29.4 pg (25.0-34.0); Mean Corpuscular Volume 92.9 fL (80.0-100.0); Platelet Count 377 K/uL (130-400); RDW Standard Deviation 58.2 fL (36.4-46.3); Red Blood Count 3.26 M/uL (4.70-6.10); White Blood Count 11.71 K/ul (4.8-10.8)
[2025-02-12 06:17] LABS: Bilirubin,Total 0.5 mg/dl (0.2-1.0); Calcium 9.3 mg/dl (8.6-10.3); Carbon Dioxide 26.0 mmol/L (21-32)
[2025-02-12 06:23] LABS: Alanine Aminotransferase 17.0 U/L (7-52); Albumin Globulin Ratio 0.9 (0.9-2); Alkaline Phosphatase 48.0 U/L (34-104); Blood Urea Nitrogen 29.0 mg/dl (6-23); Creatinine Clr Calc Pharmacy 57.1 ml/min; Globulin 4.0 gm/dl (2.5-4.0); Glucose 87.0 mg/dl (70-99(Fasting)); Total Protein 7.7 gm/dl (6.0-8.3)
[2025-02-12 06:33] LABS: Anion Gap 8.0 (3-11); Chloride 101.0 mmol/L (98-107); Potassium 3.6 mmol/L (3.5-5.1); Sodium 135.0 mmol/L (136-145)
[2025-02-12 07:56] VITALS: RESP 18
--- NOTE | 2025-02-12 11:25 | Post Operative Brief Note ---
Cardiology Brief Post Op Date of Surgery February 12, 2025 Pre & Post Diagnosis Late entry. The brief operative report with regards to the transesophageal echocardiogram performed on Mr Manuel on 02/10/25 was initially entered under the wrong patient's chart. This new note is added to document the immediate post procedure findings. Procedure February 10, 2025 Pre & Post Diagnosis Operation Date: 02/10/25 10:30 Procedure Preprocedure diagnosis: Staph aureus bacteremia, history of transcatheter aortic valve replacement Postprocedure diagnosis: No evidence of valvular vegetation or abscess Transesophageal echocardiogram procedure: The patient's vital signs were monitored via the standard fashion. After informed consent was obtained a timeout was performed the patient underwent transesophageal echocardiogram. The valves were well-visualized without evidence of vegetation or abscess. [employer] Door Assembler Robson Hodgson DO Oil Expeller Operator Shani Quinones, [facility] Estimated Blood Loss 0 Findings Consistent with Post-Op Diagnosis as noted above Anesthesia Type MAC
[2025-02-12 11:43] VITALS: BP 124/75; PULSE 72; TEMP 97.7; O2SAT 93
--- NOTE | 2025-02-12 16:39 | Discharge Summary ---
Discharge Summary Date of Service February 12, 2025 Principal Dx & Hospital Course #1 = Principal Diagnosis (1) Severe sepsis: Plan Bacteremia Left thigh wounds Possible pneumonia Severe sepsis: Secondary to above Patient presents with acute shortness of breath and febrile episode at home Patient has history of recurrent pneumonia. Patient denies cough, denies abdominal pain, denies pain or burning while passing urine, there is no streaking erythema from ulcers in the left thigh. Respiratory pathogen panel and urine analysis negative. Patient is started on vancomycin and cefepime in the ED, continue. Follow admitting blood culture. If blood culture negative and CT scan of the chest negative for infection, consider echo to rule out vegetations given history of TAVR. Continue with IV fluid, lactic acid trending down. Echocardiogram: Left ventricular systolic function is normal Status post TAVR MIRZA valve, no valvular stenosis No significant aortic valvular regurgitation trace mitral digitation Mild tricuspid regurgitation No overt vegetations noted in the study 02/11 Improving overall Afebrile, leukocytosis improving First blood cultures: MSSA Repeat blood cultures: Negative Status post MIMI no vegetation or abscess ID recommending 4 weeks of IV cefazolin Midline placement ordered Case management working on home health service Hypokalemia: P.o. potassium ordered Hypomagnesemia: Admitting magnesium of 1.5, replete 1 g, magnesium levels in AM. resolved Other chronic medical conditions: Continue with/resume home meds as when able. Monoclonal paraprotein anemia/anemia: Patient on a steroid, follows Dr. Sutton as an outpatient, continue with PPI while on steroid. Follow-up with hematology upon discharge for ongoing steroid dose adjustment. Hg stable at 8-9, Retic 2.37, LDH 508 Haptoglobin 128 Discussed with outpatient solar sales advisor Dr. Adriano Sutton, continue usual prednisone 70 mg p.o. daily for now Ulcerative colitis: Patient with no abdominal pain, continue home mesalamine p.o. and ME. Hypertension, hyperlipidemia, CAD--- continue home medication. History of TAVR: Echo noted Notes For Next Care Provider 69-year-old male with PMH of HLD, COPD, HTN, ulcerative pancolitis, chronic viral hepatitis C, iron deficiency anemia, monoclonal paraproteinemia, tobacco use disorder, narcotic addiction, aortic stenosis status post TAVR, major depressive disorder presents to the ED with complaint of acute shortness of breath and fever. Found to have sepsis, admitted to medicine. On medicine, blood cultures positive for MSSA, presumed to be from CAP, less likely left thigh wound. Cardiology and ID consulted for management of MSSA bacteremia in setting of TAVR. Repeat blood cultures negative. Midline placed for 4 weeks of IV cefazolin. On 02/12/2025 patient medically stable for discharge home. To do: [ ] finish IV course of antibiotics [ ] f/u outpatient with oncology Medication Changes From Visit -lactobacillus, irmafran Admission HPI Per Admitting Provider 69-year-old male with PMH of HLD, COPD, HTN, ulcerative pancolitis, chronic viral hepatitis C, iron deficiency anemia, monoclonal paraproteinemia, tobacco use disorder, narcotic addiction, aortic stenosis status post TAVR, major depressive disorder presents to the ED with complaint of acute shortness of breath and fever. Patient's present at bedside, who states that patient was very short of breath today and temperature was 102.7 F, saturation was 91 to 92% on room air and heart rate was 130s before arrival at home. 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 Patient had history of 2 pneumonias in the past. They deny any sick contacts lately. Patient also has multiple superficial ulcers on his left thigh with surrounding redness, no red streaking redness or tenderness on exam, patient apparently is picking on the skin. Patient denies nausea/vomiting/diarrhea/belly pain/pain or burning while passing urine. Patient reports smoking vapes, denies current use of alcohol or recreational drugs. Medications reviewed with the patient and his at bedside. Plan of care discussed with patient and his at bedside in detail. They voiced understanding. Full code Discharge Exam Gen: A&O 3 NAD, some sarcopenia noted HEENT: NCAT, EOMI, not icteric. External ears normal. No rhinorrhea. Moist mucous membranes. Neck: Supple, full range of motion, no observable masses, No meningeal sign. Lungs: No Respiratory distress. CV: RRR, no edema. Abdomen: Soft, nondistended, No rebound tenderness. MSK: No joint swelling, no redness. Skin: No rashes, petechiae, lesions. Normal color per patient. Neuro: Normal Gait, Grossly intact. Psych: Appropriate for situation. Updated Medication List Medication Instructions Recorded Confirmed Type buprenorphine 8 mg-naloxone 2 mg 1.5 ea sublingual DAILY 04/02/19 02/07/25 Hi story sublingual film (Suboxone) mesalamine 1.2 gram tablet,delayed 2.4 gm PO DAILY 04/02/19 02/07/25 History release acetaminophen 500 mg tablet 1,000 mg PO .DAILY WITH LUNCH PRN 08/03/21 02/07/25 History (Tylenol Extra Strength) Pain ferrous sulfate 325 mg (65 mg 325 mg PO [id number] 08/03/21 02/07/25 History iron) tablet gabapentin 300 mg capsule 300 mg PO BIDWMEAL 08/03/21 02/07/25 History sertraline 100 mg tablet 200 mg PO DAILY 08/03/21 02/07/25 History Oxygen Home #1 ea 12/14/21 01/05/25 Rx albuterol sulfate 90 mcg/actuation 2 inh inhalation QID PRN shortness 12/07/22 02/07/25 Rx aerosol inhaler of breath or wheezing #8.5 grams aspirin 81 mg tablet,delayed 81 mg PO DAILY 12/10/23 02/07/25 History release chlorthalidone 25 mg tablet 25 mg PO Q OTHER DAY 04/24/24 02/07/25 History cholecalciferol (vitamin D3) 125 125 mcg PO DAILY 02/07/25 02/07/25 History mcg (5,000 unit) tablet (Vitamin D3) coenzyme Q10 100 mg capsule (Co 100 mg PO DAILY 02/07/25 02/07/25 History Q-10) gabapentin 300 mg capsule 900 mg PO HS 02/07/25 02/07/25 History mesalamine 1,000 mg rectal 1,000 mg ME Q OTHER DAY 02/07/25 02/07/25 History suppository omeprazole 20 mg capsule,delayed 20 mg PO DAILY 02/07/25 02/07/25 History release prednisone 10 mg tablet 70 mg PO DAILY 02/07/25 02/07/25 History rosuvastatin 20 mg tablet 20 mg PO QPM 02/07/25 02/07/25 History L.acidop,casei,lactis,rham-B.lact,derik 1 cap PO DAILY 30 days #30 caps 02/12/25 Rx 625 mg (10 billion cell) capsule (Advanced Probiotic) nicotine 7 mg/24 hr daily 1 patch transdermal QAM #14 ea 02/12/25 Rx transdermal patch ondansetron 4 mg disintegrating 4 mg PO DAILY PRN nausea and 02/12/25 Rx tablet vomiting 5 days #14 tabs potassium chloride 20 mEq 40 meq (2 x 20 mEq) PO BID 14 days 02/12/25 Rx tablet,extended release(part/cryst) #56 tabs Hospital Stay Data Consultations 02/07/25 15:40 ED Decision to Admit Stat 02/08/25 04:54 Consult Infectious Diseases Routine 02/10/25 07:21 Consult Cardiology Routine 02/10/25 07:37 Consult Anesthesiology Routine Procedures Performed Operation Date: 02/10/25 12:15 Actual Procedures p Transesophageal Echo w/Anesthesia - DO adebayo Schrader Echo Color Flow - DO adebayo Schrader Doppler Echo Limited/Follow Up - Robson Hodgson DO Diagnostic Imagining Performed 02/07/25 16:55 CT chest diagnostic wo con Routine Pending Results Patient Have Any Pending Studies at Discharge: No Discharge Instructions Given to Patient (Per Discharging Provider) Diagnosis: MSSA Bacteremia secondary to pneumonia, left thigh wounds Follow Ups: PCP, cardiology Incidental Findings to follow up with PCP: perinephric stranding, 6mm pulmonary nodules, trace right lower lobe pleural effusion 1. Please follow up with PCP, cardiology. 2. Finish entire 4 week course of abx as prescribed. 3. Stay hydrated! Total Time Total Time Spent Total Time Spent (In Minutes): I spent a total of 35 minutes in direct patient care, including [id number] time with the patient and/or family, reviewing medical records, ordering and rev iewing diagnostic tests, and coordinating care with other healthcare providers. This time includes: history taking, physical examination, medical decision making, counseling, ECG interpretation, imaging interpretation, lab interpretation, orders, and education, excluding time spent in the performance of separately billed services.
== END 2025-02-12 15:59 | disposition home health service (06) | DRG 871 ==
LOC: ED 14:03 → 2E 16:41 → SUATTDRO 16:41 → 2E 18:20